=== PATIENT | female | born 1970 | race Caucasian/White ===

== ENCOUNTER → 2021-01-30 12:01 | Outpatient (BNVA) | payer OTHER, SELFPAY | PROVIDERS: Family Provider Family Medicine; PCP Family Medicine; Visit Provider Specialist | DX: H46.9 Unspecified optic neuritis (principal); G43.711 Chronic migraine without aura, intractable, with status migrainosus; M35.3 Polymyalgia rheumatica | CPT/HCPCS: 99204 ==

== ENCOUNTER 2021-02-09 14:59 | Outpatient (CLI) | payer OTHER, SELFPAY ==
[2021-02-09 15:59] LABS: C Reactive Protein 2.7 mg/L (0.0-4.9); Creatine Phosphokinase 86 U/L (26-192)
[2021-02-10 11:13] LABS: COMPLEMENT, TOTAL (CH50) >60 U/mL (31-60)
[2021-02-10 12:52] LABS: COMPLEMENT COMPONENT C3C 117 mg/dL (83-193); COMPLEMENT COMPONENT C4C 21 mg/dL (15-57)
[2021-02-14 15:58] LABS: THYROID PEROXIDASE ANTIBODIES 1 IU/mL (<9)
[2021-02-16 11:33] LABS: ANA PATTERN Nuclear, Homogeneous; ANA SCREEN, IFA POSITIVE (NEGATIVE)
[2021-02-16 14:23] LABS: CENTROMERE B ANTIBODY <1.0 NEG AI (<1.0 NEG); JO-1 ANTIBODY <1.0 NEG AI (<1.0 NEG); RNP ANTIBODY <1.0 NEG AI (<1.0 NEG); SCL-70 ANTIBODY <1.0 NEG AI (<1.0 NEG); SJOGREN'S ANTIBODY (SS-A) <1.0 NEG AI (<1.0 NEG); SM ANTIBODY <1.0 NEG AI (<1.0 NEG); SS-B <1.0 NEG AI (<1.0 NEG)
[2021-02-19 01:43] LABS: DNA AB (DS) CRITHIDIA,IFA NEGATIVE (NEGATIVE)
== END 2021-02-09 15:00 | disposition home or self-care (01) ==
LOC: LAB 15:00
PROVIDERS: PCP Family Medicine; Visit Provider Specialist
DX: M35.3 Polymyalgia rheumatica (principal); H46.9 Unspecified optic neuritis
CPT/HCPCS: 36415; 82550; 86140; 86160; 86162; 86235; 86255; 86376

== ENCOUNTER → 2021-02-27 11:23 | Outpatient (BNVA) | payer OTHER, SELFPAY | PROVIDERS: PCP Family Medicine; Visit Provider Specialist | DX: H46.9 Unspecified optic neuritis (principal); R13.10 Dysphagia, unspecified; M79.7 Fibromyalgia; E10.9 Type 1 diabetes mellitus without complications; Z79.84 Long term (current) use of oral hypoglycemic drugs; M35.3 Polymyalgia rheumatica; G43.711 Chronic migraine without aura, intractable, with status migrainosus | CPT/HCPCS: 20550; 20552; 99214; J1030; J3490 ==

== ENCOUNTER 2021-03-20 08:02 | Outpatient (CLI) | payer OTHER, SELFPAY ==
--- NOTE | 2021-03-20 08:30 | FL_ITS ---
WS: [id number] ESOPHAGRAM WITH FLUOROSCOPY HISTORY: R13.10 - Dysphagia, unspecified COMPARISON: None available. FLUOROSCOPY TIME: 1.0 minutes. Esophagus and swallowing function: Patient swallowed the barium mixture without difficulty. No strict ures or mucosal abnormalities are identified. Small osteophytes encroach upon the posterior cervical esophagus at the C6-7 level but do not disrupt swallowing mechanism. Patient swallowed the barium tab let without difficulty. Barium tablet became briefly lodged at the GE junction. No significant stenos is. Gastroesophageal reflux: None. Hiatal hernia: Small reducible hiatal hernia. FL/FL barium swallow 32744 IMPRESSION: 1. No esophageal high-grade strictures. No aspiration. 2. Barium tablet became briefly lodged at the GE junction. No high-grade stric ture at this time. 3. Small hiatal hernia.
== END 2021-03-20 08:03 | disposition home or self-care (01) ==
LOC: RADWPI 08:06
PROVIDERS: PCP Family Medicine; Visit Provider Specialist
DX: R13.10 Dysphagia, unspecified (principal); K44.9 Diaphragmatic hernia without obstruction or gangrene
CPT/HCPCS: 74220

== ENCOUNTER 2021-03-28 09:11 | Outpatient (CLI) | payer OTHER, SELFPAY ==
--- NOTE | 2021-03-28 09:30 | MR_ITS ---
WS: [id number] MRI HEAD WITHOUT AND WITH CONTRAST TECHNIQUE: Sagittal T1, T2 axial, T2 axial FLAIR, axial susceptibility weighted imaging, axial diffus ion weighted images, and coronal T2 images were obtained. Pre and post-T1 axial and post T1 coronal i mages. ADC and FSPGR images. Attention to the orbits with fat saturation technique. CLINICAL INFORMATION: H46.9 - Unspecified optic neuritis COMPARISON: MRI November 30, 2020 FINDINGS: No evidence of restricted diffusion to suggest acute ischemia. 2 or 3 tiny foci of T2 hyperintensity in the subcortical white matter. No suspicious infratentorial lesions. No pericallosal lesions. Oriana l corpus callosum. No hemosiderin on the susceptibly weighted images. Normal optic chiasm and pituitary infundibulum. Te mporal lobes and hippocampal formations are normal in appearance. Normal cavernous sinuses and Meckel 's cave. Prechiasmatic and intraorbital optic nerves are normal in appearance. No evidence of optic nerve gisele a. No abnormal optic nerve enhancement to indicate optic neuritis. Rectus muscles appear normal. No abnormal gadolinium enhancement. Normal dural venous sinuses. MR/MR head orbits wo/w* 83348/43 IMPRESSION: 1. No evidence of restricted diffusion to suggest acute ischemia. 2. No evidence of optic nerve edema or enhancement. Normal optic chiasm and op tic nerves. 3. Normal rectus muscles. 4. 2 or 3 tiny foci of T2 hyperintensity in the subcortical white matter nonsp ecific but of doubtful clinical significance. 5. No hemosiderin on susceptibly weighted images. 6. No other suspicious findings.
[2021-03-28] MEDS: gadobenate dimeglumine 20 mL vial IV (10:27)
== END 2021-03-28 09:12 | disposition home or self-care (01) ==
PROVIDERS: PCP Family Medicine; Visit Provider Specialist
DX: H46.9 Unspecified optic neuritis (principal)
CPT/HCPCS: 70543; 70553; A9577

== ENCOUNTER → 2021-04-03 09:50 | Outpatient (BNVA) | payer OTHER, SELFPAY | PROVIDERS: PCP Family Medicine; Visit Provider Specialist | DX: G43.711 Chronic migraine without aura, intractable, with status migrainosus (principal); M79.7 Fibromyalgia; Z71.89 Other specified counseling; H46.8 Other optic neuritis; E10.9 Type 1 diabetes mellitus without complications; Z79.4 Long term (current) use of insulin; M54.5 Low back pain | CPT/HCPCS: 99214 ==

== ENCOUNTER → 2021-04-24 09:41 | Outpatient (BNVA) | payer OTHER, SELFPAY | PROVIDERS: PCP Family Medicine; Visit Provider Internal Medicine Rheumatology | DX: M05.79 Rheumatoid arthritis with rheumatoid factor of multiple sites without organ or systems involvement (principal); H47.20 Unspecified optic atrophy; Z79.899 Other long term (current) drug therapy; E10.9 Type 1 diabetes mellitus without complications; Z11.59 Encounter for screening for other viral diseases; Z71.89 Other specified counseling | CPT/HCPCS: 99205 ==

== ENCOUNTER 2021-04-28 12:00 | Outpatient (CLI) | payer OTHER, SELFPAY ==
[2021-04-28 13:23] LABS: Basophils # 0.1 10^3/uL (0.0-0.1); Basophils % 0.8 %; Eosinophils % 0.4 %; Hematocrit 42.4 % (37.0-47.0); Hemoglobin 14.7 g/dL (11.5-15.3); Lymphocytes # 1.6 10^3/uL (0.8-4.8); Lymphocytes % 16.9 %; Mean Corpuscular HGB Conc 34.7 g/dL (30.0-36.0); Mean Corpuscular Volume 92.2 fL (81-99); Mean Platelet Volume 11.3 fL (7.4-10.4); Monocytes # 0.5 10^3/uL (0.2-0.9); Monocytes % 4.6 %; Neutrophils # 7.45 10^3/uL (1.8-7.7); Nucleated Red Blood Cells % 0 %; Platelet Count 270 10^3/cmm (130-400); Red Cell Distribution Width 12.3 % (12.1-15.1); White Blood Count 9.7 10^3/uL (4.0-10.0)
[2021-04-28 13:26] LABS: Erythrocyte Sedimentation Rate 21 mm/hr (0-15)
[2021-04-28 13:40] LABS: Hepatitis B Core AB, Total Non-Reactive (Nonreactive); Hepatitis B Surface Antigen Non-Reactive (Nonreactive); Hepatitis C Virus Antibody Non-Reactive (Nonreactive)
[2021-04-28 14:55] LABS: Alanine Aminotransferase 16 U/L (0-33); Albumin Level 4.4 g/dL (3.5-5.2); Alkaline Phosphatase 95 IU/L (35-105); Aspartate Amino Transferase 17 U/L (0-32); C Reactive Protein 2.8 mg/L (0.0-4.9); Creatine Phosphokinase 69 U/L (26-192); Globulin 2.8 g/dL (1.3-4.6); Total Bilirubin 0.4 mg/dL (0.15-1.2); Total Protein 7.2 g/dL (6.6-8.7)
[2021-04-28 15:10] LABS: 25 Hydroxy Vitamin D 32 ng/mL (30-100)
[2021-04-30 16:54] LABS: HLA-B27 NEGATIVE (NEGATIVE)
[2021-05-01 11:07] LABS: Aldolase 2.5 U/L (< OR = 8.1)
[2021-05-01 11:57] LABS: Quantiferon Mitogen >10.00 IU/mL; Quantiferon Nil 0.02 IU/mL; Quantiferon TB Gold NEGATIVE (NEGATIVE)
== END 2021-04-28 12:01 | disposition home or self-care (01) ==
PROVIDERS: PCP Family Medicine; Visit Provider Internal Medicine Rheumatology
DX: M19.90 Unspecified osteoarthritis, unspecified site (principal); M45.9 Ankylosing spondylitis of unspecified sites in spine; Z11.59 Encounter for screening for other viral diseases; Z79.899 Other long term (current) drug therapy
CPT/HCPCS: 80076; 82085; 82306; 82550; 82565; 85025; 85651; 86140; 86480; 86704; 86803; 86812; 87340

== ENCOUNTER → 2021-05-24 08:57 | Outpatient (BNVA) | payer OTHER, SELFPAY | PROVIDERS: PCP Family Medicine; Referring Provider Internal Medicine Rheumatology; Visit Provider Specialist | DX: R29.898 Other symptoms and signs involving the musculoskeletal system (principal); E10.9 Type 1 diabetes mellitus without complications; Z79.84 Long term (current) use of oral hypoglycemic drugs | CPT/HCPCS: 95909 ==

== ENCOUNTER → 2021-07-25 08:32 | Outpatient (BNVA) | payer OTHER, SELFPAY | PROVIDERS: PCP Family Medicine; Referring Provider Internal Medicine Rheumatology; Visit Provider Specialist | DX: G43.711 Chronic migraine without aura, intractable, with status migrainosus (principal); M79.7 Fibromyalgia; H46.9 Unspecified optic neuritis; R20.0 Anesthesia of skin; R20.2 Paresthesia of skin; E10.649 Type 1 diabetes mellitus with hypoglycemia without coma; Z96.41 Presence of insulin pump (external) (internal); Z79.4 Long term (current) use of insulin; Z79.84 Long term (current) use of oral hypoglycemic drugs; M35.3 Polymyalgia rheumatica; M05.79 Rheumatoid arthritis with rheumatoid factor of multiple sites without organ or systems involvement | CPT/HCPCS: 64615; 95861; 99213; J0585 ==

== ENCOUNTER 2021-12-06 12:28 | Outpatient (CLI) | payer OTHER, SELFPAY ==
[2021-12-06 13:26] LABS: Basophils # 0.1 10^3/uL (0.0-0.1); Basophils % 0.9 %; Eosinophils # 0.1 10^3/uL (0.0-0.8); Eosinophils % 0.5 %; Hematocrit 39.8 % (37.0-47.0); Hemoglobin 13.3 g/dL (11.5-15.3); Lymphocytes # 2.1 10^3/uL (0.8-4.8); Lymphocytes % 21.3 %; Mean Corpuscular HGB Conc 33.4 g/dL (30.0-36.0); Mean Corpuscular Hemoglobin 31.7 pg (28.0-34.0); Monocytes # 0.7 10^3/uL (0.2-0.9); Monocytes % 6.8 %; Neutrophils # 6.93 10^3/uL (1.8-7.7); Neutrophils % 70.2 %; Nucleated Red Blood Cells % 0 %; Platelet Count 293 10^3/cmm (130-400); Red Blood Count 4.19 10^6/uL (4.1-5.3); Red Cell Distribution Width 12.8 % (12.1-15.1); White Blood Count 9.9 10^3/uL (4.0-10.0)
--- NOTE | 2021-12-06 13:53 | XR_ITS ---
WS: [id number] Right hand, 3 views, 12/06/2021 Clinical Data: M05.79 - Rheumatoid arthritis with rheumatoid factor of m... Comparison: None. Findings: No fractures or dislocations are seen. The soft tissues are unremarkable. The joint space s are normal No periarticular demineralization or calcifications are seen. XR/XR hand RT min 3V* 63856 Impression: Negative right hand.
--- NOTE | 2021-12-06 13:53 | XR_ITS ---
WS: [email or web address] Right foot, 3 views, 12/06/2021 Clinical Data: M05.79 - Rheumatoid arthritis with rheumatoid factor of m... Comparison: None. Findings: No fractures or dislocations are seen. No bone destruction or erosion is noted. The joint spaces and soft tissues are normal. No periarticular demineralization or calcifications are seen. XR/XR foot RT min 3V* [id number] Impression: Negative right foot.
--- NOTE | 2021-12-06 13:53 | XR_ITS ---
WS: [email or web address] Cervical spine, 3 views, 12/06/2021 Clinical Data: M05.79 - Rheumatoid arthritis with rheumatoid factor of m... Comparison: None. Findings: No compression fractures are seen. There is degenerative disc narrowing at C5-C6 with minim al anterior osteophytes. There is no prevertebral soft tissue swelling. The odontoid is unremarkable. The soft tissues of the neck and the lung apices are normal. XR/XR cervical spine 3V* 70782 Impression: 1. Degenerative disc narrowing at C5-C6 with anterior osteophytes. 2. No evidence of abnormal odontoid or atlantoaxial subluxation.
--- NOTE | 2021-12-06 13:53 | XR_ITS ---
WS: [email or web address] Left hand, 3 views, 12/06/2021 Clinical Data: M05.79 - Rheumatoid arthritis with rheumatoid factor of m... Comparison: None. Findings: No fractures or dislocations are seen. The soft tissues are unremarkable. There is osteoarthritis of the left second finger DIP joint. No periarticular demineralization or calcifications are seen. XR/XR hand LT min 3V* 26784 Impression: 1. 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
--- NOTE | 2021-12-06 13:53 | XR_ITS ---
WS: [email or web address] Pelvis, AP view, 12/06/2021 Clinical Data: M05.79 - Rheumatoid arthritis with rheumatoid factor of m... Comparison: None. Findings: No fractures or dislocations are seen. The SI joints and pubic symphysis are intact. The soft tissues are not remarkable. The hip show no narrowing, erosion, sclerosis or femoral head fragmentation. There are phleboliths on the left side of the true pelvis. XR/XR pelvis 1-2V* 12965 Impression: Negative pelvis.
--- NOTE | 2021-12-06 13:53 | XR_ITS ---
WS: [email or web address] Left foot, 3 views, 12/06/2021 Clinical Data: M05.79 - Rheumatoid arthritis with rheumatoid factor of m... Comparison: None. Findings: No fractures or dislocations are seen. No bone destruction or erosion is noted. There is a small buni on at the head of the left first metatarsal.No periarticular demineralization or calcifications are s een. XR/XR foot LT min 3V* 64043 Impression: Small bunion at the head of the left first metatarsal.
--- NOTE | 2021-12-06 13:53 | XR_ITS ---
WS: [email or web address] Chest 2 views, 12/06/2021 Clinical Data: M05.79 - Rheumatoid arthritis with rheumatoid factor of m... Comparison: Portable chest, 01/05/2018. Findings: No nodules, masses or effusions are seen. The heart is normal. The pulmonary vascularity is not increased. No pneumonia or pneumothorax is seen. There is a calcified granuloma in the right upp er lobe with multiple smaller granulomas in the right hilum and right lower lobe. XR/XR chest 2V* [id number] Impression: Old granulomatous disease.
[2021-12-06 14:12] LABS: Alanine Aminotransferase 43 U/L (0-33); Albumin Level 4.4 g/dL (3.5-5.2); Alkaline Phosphatase 157 IU/L (35-105); Aspartate Amino Transferase 27 U/L (0-32); Globulin 2.9 g/dL (1.3-4.6); Glomerular Filtration Rate 87.5 mL/min (90-130); Total Bilirubin 0.4 mg/dL (0.15-1.2); Total Protein 7.3 g/dL (6.6-8.7)
== END 2021-12-06 12:29 | disposition home or self-care (01) ==
LOC: LAB 12:32
PROVIDERS: PCP Family Medicine; Visit Provider Internal Medicine Rheumatology
DX: M05.79 Rheumatoid arthritis with rheumatoid factor of multiple sites without organ or systems involvement (principal); M06.9 Rheumatoid arthritis, unspecified; Z79.899 Other long term (current) drug therapy; M21.612 Bunion of left foot
CPT/HCPCS: 71046; 72040; 72170; 73130; 73630; 80076; 82565; 85025; 86140

== ENCOUNTER → 2022-06-07 11:38 | Outpatient (BNVA) | payer OTHER, SELFPAY | PROVIDERS: PCP Family Medicine; Visit Provider Family Medicine | DX: R10.9 Unspecified abdominal pain (principal); E05.90 Thyrotoxicosis, unspecified without thyrotoxic crisis or storm; E10.9 Type 1 diabetes mellitus without complications | CPT/HCPCS: 80053; 82607; 83690; 84439; 84443; 84481; 85025 ==

== ENCOUNTER → 2022-11-13 10:36 | Outpatient (BNVA) | payer OTHER, SELFPAY | PROVIDERS: PCP Family Medicine; Visit Provider Internal Medicine Rheumatology | DX: Z79.899 Other long term (current) drug therapy (principal); M05.79 Rheumatoid arthritis with rheumatoid factor of multiple sites without organ or systems involvement | CPT/HCPCS: 36415; 80076; 82565; 85025; 86140 ==

== ENCOUNTER → 2022-12-13 15:20 | Outpatient (BNVA) | payer OTHER, SELFPAY | PROVIDERS: PCP Family Medicine; Visit Provider Family Medicine | DX: L98.9 Disorder of the skin and subcutaneous tissue, unspecified (principal) | CPT/HCPCS: 88304 ==

== ENCOUNTER 2022-12-24 11:42 | Observation (INO) | payer OTHER, SELFPAY ==
[2022-12-24] VITALS (15 sets, daily range): BP systolic 124–166; BP diastolic 10–103; PULSE 83–107; RESP 13–24; TEMP 36.8–37; O2SAT 90–98; BMI 27.4
--- NOTE | 2022-12-24 11:53 | XRR_ITS ---
PROCEDURE INFORMATION: Exam: XR Chest Exam date and time: 12/24/2022 12:06 PM Age: 52 years old Clinical indication: Pain; Angina pectoris; Additional info: Chest pain TECHNIQUE: Imaging protocol: Radiologic exam of the chest. Views: 1 view. COMPARISON: CR XR chest 2V* [id number] 12/06/2021 2:21 PM FINDINGS: Lungs: Calcified granuloma in the right upper lobe is stable since 01/05/2018. There is no consolidation. Pleural spaces: There is no pleural effusion or pneumothorax. Heart/Mediastinum: Cardiomediastinal contours are unremarkable. Bones/joints: Bones are unremarkable. XR/XR chest 1V portable [id number] IMPRESSION: No acute findings.
--- NOTE | 2022-12-24 12:03 | ECG_ITS ---
[facility] Test Date: 2022-12-24 Pat Name: Arline Fisher Department: Room: Gender: Female Project Manager Interior Design: : 1970 Requested By: Fern Rivera Order Number: [id number] Phyllis MD: Manoj Moulton M.D. Measurements Intervals [place] Rate: 86 P: 38 [place]: 150 QRS: -23 QRSD: 94 T: 23 QT: 342 QTc: 411 Interpretive Statements SINUS RHYTHM SEPTAL MYOCARDIAL INFARCTION , PROBABLY OLD [40+ ms Q WAVE IN V1/V2] Compared to ECG 01/05/2018 21:42:46 Myocardial infarct finding now present Electronically Signed On 12-24-2022 15:58:14 CDT by Manoj Moulton M.D. [email or web address] [email or web address].[employer]/store/NU/[id number] f
--- NOTE | 2022-12-24 12:06 | ED_ITS ---
HPI - Chest Pain General: Chief Complaint: ER Hold Stated Complaint: chest pain this morning Time Seen by Provider: 12/24/22 12:06 History of Present Illness: Ms Fisher is a 52-year-old lady with complex past medical history including type 1 diabetes presenting to the emergency d [facility] for chest pain. She reports onset of symptoms woke her up from sleep at approximately 4 AM. She managed to fall back asleep however it persisted when she woke up. She endorses heaviness over her chest with radiation to left jaw. Associated shortness of breath. No other typical cardiac features. She reports 1 prior episode approximately 6 months ago however does not have frequent history of similar. She still has pain though it has improved slightly. She has had a mild respiratory infection over the past week however felt that this was improving. No other specific changes in health, exacerbating, or alleviating factors identified. Onset (ago): hour(s) Timing of current episode: constant Prior episodes: Yes (x1) Onset: during rest and awoke with symptoms Pain location: substernal Pain radiation: neck and jaw/teeth Severity: moderate Quality: heaviness Relieving factors: nothing Exacerbating factors: nothing Associated symptoms: Reports dyspnea; Deny diaphoresis or nausea Review of Systems General: Reports: 10 or more systems reviewed and unremarkable except in HPI and below Const: Denies: diaphoresis Resp: Reports: dyspnea GI: Denies: nausea PFSH ED 2 PFSH: Medical History Chronic migraine without aura, intractable, with status migrainosus Diabetes 1.5, managed as type 1 High risk medication use Immunization counseling Optic nerve atrophy, right Plaque psoriasis Seropositive rheumatoid arthritis of multiple sites Surgical History History of delivery History of esophageal surgery cyst History of hysterectomy with bilateral oophorectomy Family History Other CAD (coronary artery disease) Diabetes FH: migraines Hypertension Multiple sclerosis Multiple system atrophy Denies family history of Rheumatoid arthritis Lupus Chronic kidney disease (CKD) Lung disease Cancer Stroke Social History Smoking and tobacco status: never smoked Alcohol intake: current Alcohol intake frequency: few times a month Physical Exam Const: COMMON NORMALS: alert GENERAL APPEARANCE: cooperative and well developed HENMT: COMMON NORMALS: normocephalic and atraumatic HEAD & SCALP: normocephalic and atraumatic Eye: COMMON NORMALS: conjunctivae normal CONJUNCTIVA: Yes conjunctivae normal SCLERA: sclerae normal Neck/C-Spine: COMMON NORMALS: supple GENERAL: Yes trachea midline Resp: COMMON NORMALS: clear to auscultation bilaterally EFFORT & INSPECTION: Yes able to speak in complete sentences AUSCULTATION: clear to auscultation bilaterally Cardio: COMMON NORMALS: regular rate and regular rhythm RATE: regular rate RHYTHM: regular rhythm GI: COMMON NORMALS: Soft to palpation PALPATION: Yes Soft to palpation and No Tenderness to palpation present (GI) Extremity: GENERAL: Yes normal exam except as noted and No edema Neuro: COMMON NORMALS: moves all extremities SENSORIUM/ORIENTATION: Yes alert and No Orientation impaired Skin: NARRATIVE SKIN EXAM: small right ankle skin ulcerations x2. no cellulitis. reports being worked up by PCP. Course Vital Signs: Vital signs: Vital Signs Temperature 97.9 F 12/25/22 07:06 Pulse Rate 105 H 12/25/22 15:23 Respiratory Rate 18 12/25/22 15:23 Blood Pressure 134/84 12/25/22 15:23 Pulse Oximetry 95 12/25/22 15:23 Oxygen Delivery Me thod 12/25/22 11:09 [facility] - Chest Pain Medical Decision Making 52-year-old presenting to the emergency department for chest pain. Exam as above. Patient is nontoxic. EKG notable for sinus rhythm, left axis deviation, normal intervals, nonspecific ST segment abnormalities, no STEMI. Labs with no leukocytosis, normal hemoglobin and platelet count. No metabolic abnormalities. Initial troponin negative with no increase on repeat. Chest x-ray demonstrates no lobar consolidation or pneumothorax. During ED course patient treated with IV fluids and aspirin. Patient is not low risk by heart score, she warrants inpatient testing for possible cardiac cause of chest pain. The results of ED evaluation were discussed with the patient including plan for admission due to requirement for level of care not available if discharged to prevent significant worsening/deterioration. Patient agreeable with plan. Discussed with hospitalist service who was agreeable to admit patient. Medical Records I reviewed the patient's medical records. Lab Data I reviewed the patient's lab results. 12/24/22 12:08 12/24/22 12:08 Radiology Impressions Chest X-Ray 12/24/22 11:53 IMPRESSION: No acute findings. Laboratory Results WBC 6.3 10^3/uL (4.0-10.0) 12/24/22 12:08 RBC 3.96 10^6/uL (4.1-5.3) L 12/24/22 12:08 Hgb 13.0 g/dL (11.5-15.3) 12/24/22 12:08 Hct 39.7 % (37.0-47.0) 12/24/22 12:08 MCV 100.3 fl (81-99) H 12/24/22 12:08 MCH 32.8 pg (28.0-34.0) 12/24/22 12:08 MCHC 32.7 g/dL (30.0-36.0) 12/24/22 12:08 RDW 11.3 % (12.1-15.1) L 12/24/22 12:08 Plt Count 269 10^3/cmm (130-400) 12/24/22 12:08 MPV 10.5 fL (7.4-10.4) H 12/24/22 12:08 Neut % (Auto) 64.3 % 12/24/22 12:08 Lymph % (Auto) 23.2 % 12/24/22 12:08 [place] % (Auto) 8.0 % 12/24/22 12:08 Eos % (Auto) 2.4 % 12/24/22 12:08 Baso % (Auto) 1.8 % 12/24/22 12:08 Neut # (Auto) 4.03 10^3/uL (1.8-7.7) 12/24/22 12:08 Lymph # (Auto) 1.5 10^3/uL (0.8-4.8) 12/24/22 12:08 [place] # (Auto) 0.5 10^3/uL (0.2-0.9) 12/24/22 12:08 Eos # (Auto) 0.2 10^3/uL (0.0-0.8) 12/24/22 12:08 Baso # (Auto) 0.1 10^3/uL (0.0-0.1) 12/24/22 12:08 Nucleated RBC % (auto) 0 % 12/24/22 12:08 Nucleated RBCs # 0.0 /100WBC 12/24/22 12:08 PT 13.20 SECONDS (12.1-14.9) 12/24/22 12:08 INR 0.97 (0.8-1.2) 12/24/22 12:08 APTT 33.2 SECONDS (23.9-36.7) 12/24/22 12:08 Sodium 142 mmol/L (136-145) 12/24/22 12:08 Potassium 4.0 mmol/L (3.5-5.1) 12/24/22 12:08 Chloride 107 mmol/L (98-107) 12/24/22 12:08 Carbon Dioxide 27 mmol/L (22-29) 12/24/22 12:08 Anion Gap 12.0 (5-19) 12/24/22 12:08 BUN 8 mg/dL (6-20) 12/24/22 12:08 Creatinine 0.6 mg/dL (0.5-0.9) 12/24/22 12:08 GFR Calculation 104.2 mL/min (90-130) 12/24/22 12:08 Glucose 81 mg/dL (65-115) 12/24/22 12:08 Calculated Osmolality 291 mOsm/kg (285-295) 12/24/22 12:08 Calcium 9.3 mg/dL (8.5-10.5) 12/24/22 12:08 Total Bilirubin 0.4 mg/dL (0.15-1.2) 12/24/22 12:08 AST 22 U/L (0-32) 12/24/22 12:08 ALT 17 U/L (0-33) 12/24/22 12:08 Alkaline Phosphatase 71 U/L (35-105) 12/24/22 12:08 Troponin T Baseline 6 ng/L (0-10) 12/24/22 12:08 Troponin T 120 Minute 6.00 ng/L (0-10) 12/24/22 14:15 Delta Troponin T 0 ABS# (0-10) 12/24/22 14:15 Total Protein 6.5 g/dL (6.6-8.7) L 12/24/22 12:08 Albumin 4.1 g/dL (3.5-5.2) 12/24/22 12:08 Globulin 2.4 g/dL (1.3-4.6) 12/24/22 12:08 Lipase 22 U/L (13-60) 12/24/22 12:08 Discharge Plan Discharge Patient Disposition: Placed in Observation Admit Provider: Gwendolyn Chavez Clinical Impression: Chest pain Discharge Diet: Usual diet Discharge Activity: Resume usual activity Coding Level of Care Code ED Display Carver for Vee Pham
[2022-12-24 12:18] LABS: Basophils # 0.1 10^3/uL (0.0-0.1); Basophils % 1.8 %; Eosinophils # 0.2 10^3/uL (0.0-0.8); Eosinophils % 2.4 %; Hematocrit 39.7 % (37.0-47.0); Lymphocytes # 1.5 10^3/uL (0.8-4.8); Lymphocytes % 23.2 %; Mean Corpuscular HGB Conc 32.7 g/dL (30.0-36.0); Mean Corpuscular Hemoglobin 32.8 pg (28.0-34.0); Mean Corpuscular Volume 100.3 fl (81-99); Mean Platelet Volume 10.5 fL (7.4-10.4); Monocytes # 0.5 10^3/uL (0.2-0.9); Neutrophils # 4.03 10^3/uL (1.8-7.7); Neutrophils % 64.3 %; Nucleated Red Blood Cells % 0 %; Platelet Count 269 10^3/cmm (130-400); Red Blood Count 3.96 10^6/uL (4.1-5.3); Red Cell Distribution Width 11.3 % (12.1-15.1); White Blood Count 6.3 10^3/uL (4.0-10.0)
[2022-12-24] MEDS: sodium chloride 0.9% 500 ML 999 ML IV (12:23)
[2022-12-24] MEDS: aspirin 81 mg Chew Tablet 324 MG PO (12:23)
[2022-12-24 12:37] LABS: Troponin(5th) Baseline 6 ng/L (0-10)
[2022-12-24 12:38] LABS: Alanine Aminotransferase 17 U/L (0-33); Albumin Level 4.1 g/dL (3.5-5.2); Alkaline Phosphatase 71 U/L (35-105); Aspartate Amino Transferase 22 U/L (0-32); Blood Urea Nitrogen 8 mg/dL (6-20); Calcium 9.3 mg/dL (8.5-10.5); Carbon Dioxide 27 mmol/L (22-29); Chloride 107 mmol/L (98-107); Globulin 2.4 g/dL (1.3-4.6); Glomerular Filtration Rate 104.2 mL/min (90-130); Glucose 81 mg/dL (65-115); Osmolality Calculated 291 mOsm/kg (285-295); Sodium 142 mmol/L (136-145); Total Bilirubin 0.4 mg/dL (0.15-1.2); Total Protein 6.5 g/dL (6.6-8.7)
[2022-12-24 12:44] LABS: INR 0.97 (0.8-1.2); Partial Thromboplastin Time 33.2 SECONDS (23.9-36.7)
[2022-12-24 12:58] LABS: Lipase 22 U/L (13-60)
--- NOTE | 2022-12-24 14:00 | ECG_ITS ---
[facility] Test Date: 2022-12-24 Pat Name: Arline Fisher Department: Room: Gender: Female Direct Care Specialist: : 1970 Requested By: Fern Rivera Order Number: [id number] Phyllis MD: Manoj Moulton M.D. Measurements Intervals [place] Rate: 89 P: 40 [place]: 148 QRS: -14 QRSD: 85 T: 18 QT: 335 QTc: 408 Interpretive Statements SINUS RHYTHM Compared to ECG 01/05/2018 21:42:46 No significant changes Electronically Signed On 12-24-2022 16:03:52 CDT by Manoj Moulton M.D. [email or web address].[employer]/store/OM/[id number]
[2022-12-24 15:24] LABS: Troponin 5 2HR Delta 0 ABS# (0-10)
--- NOTE | 2022-12-24 17:53 | ECG_ITS ---
[facility] Test Date: 2022-12-24 Pat Name: Arline Fisher Department: Room: 103 Gender: Female Addictions Therapist: : 1970 Requested By: Fern Rivera Order Number: [id number] Phyllis MD: Kathryn Underwood M.D. Measurements Intervals [place] Rate: 84 P: 40 [place]: 146 QRS: -20 QRSD: 97 T: 23 QT: 356 QTc: 422 Interpretive Statements SINUS RHYTHM SEPTAL MYOCARDIAL INFARCTION , PROBABLY OLD [40+ ms Q WAVE IN V1/V2] Compared to ECG 12/24/2022 14:00:40 Myocardial infarct finding now present Electronically Signed On 12-25-2022 23:14:07 CDT by Kathryn Underwood M.D. [email or web address].[employer]/store/OM/[id number]
--- NOTE | 2022-12-24 18:59 | ECG_ITS ---
[facility] Test Date: 2022-12-25 Pat Name: Arline Fisher Department: Room: 103 Gender: Female Senior Quality Control Inspector: : 1970 Requested By: Gwendolyn Chavez Order Number: [id number] Phyllis MD: Manoj Moulton M.D. Interpretive Statements NAME OF STUDY: LEXISCAN SESTAMIBI STRESS TEST INDICATION: [Angina] Procedure: At the baseline, the blood pressure was 128/94 mmHg with a heart rate of 88 bpm. The electrocardiogram showed normal sinus rhythm, normal axis with normal ST and T's. The Lexiscan was infused over a period of 20 seconds. A total of 0.4 mg of Lexiscan was infused. The stress phase was continued for a total of 5 minutes. Heart rate was at the end of stress phase was 98 bpm and a blood pressure of 141/96 mmHg. The EKG at the peak infusion revealed normal sinus rhythm with no significant ST-T wave changes. Sestamibi was injected 20 seconds after the Lexiscan infusion. Blood pressure at the end of recovery phase was 130/95 mmHg with a heart rate of 90 bpm. Conclusion: 1. Normal EKG response to Lexiscan infusion 2. No Lexiscan induced chest pain or cardiac arrhythmia. 3. Normal blood pressure and heart rate response. 4. Sestamibi/sestamibi perfusion scan pending; see separate report. Electronically Signed On 01-10-2023 11:56:57 CDT by Manoj Moulton M.D. [email or web address]/store/OM/[id number]
[2022-12-24 19:01] LABS: Troponin 5 6HR 8.68 ng/L (0-10)
--- NOTE | 2022-12-24 19:05 | PM.HP ---
Providers/Chief Complaint Admitting Physician: Gwendolyn Chavez MD Primary Care Provider: Sven Mai MD Chief Complaint: chest pain this morning History of Present Illness Arline Fisher is a 52 year old female with a past medical history of type 1 diabetes mellitus, states under good control, essential hypertension, not currently on any medication for the same, polymyalgia rheumatica and optic neuritis on immunosuppressants presenting with complaints of left-sided chest pain radiating into her jaw. Patient states it is 8 out of 10 at its maximum intensity. The pain woke her up from sleep this morning. It has not recurred since then. She did have a similar episode of left-sided chest pain radiating into the left arm approximately 6 months ago. She tells me there was a plan to pursue a stress test as an outpatient, however this never got done. She denies any dyspnea palpitations or syncope, however does report she was nauseous this morning after the episode. EKG today does not show any acute ST-T wave changes. Troponin series is currently without any significant delta. Review of Systems General: Reports: 10 or more systems reviewed and unremarkable except in HPI and below Const: Denies: fever(s), chills or body aches Eyes: Denies: change in vision, blurry vision or photophobia ENMT: Reports: hoarseness; Denies: throat pain, enlarged tonsils, odynophagia or nasal congestion Card: Denies: chest pain, palpitations, irregular heart rhythm, edema, swelling of feet/ankles, lightheadedness, pre-syncope, dyspnea on exertion or orthopnea Resp: Denies: dyspnea, productive cough, non-productive cough, wheezing, stridor, pain on inspiration, change in phlegm color, hemoptysis or chest congestion GI: Denies: abdominal pain, nausea, vomiting, hematemesis, coffee ground emesis, dysphagia, heartburn, diarrhea, constipation, GI cramping, change in stool character, hematochezia or melena : Denies: flank pain, difficulty voiding, dysuria, urinary frequency, urinary urgency, urinary hesitancy or hematuria Musc: Denies: neck pain, back pain, extremity pain, joint swelling, joint warmth or deformity Neuro: Denies: headache(s), numbness in extremities, weakness in extremities, sensory changes, difficulty walking, frequent falls, dizziness, vertigo, behavioral changes, Slurred speech present or seizure-like activity Psych: Denies: anxiety, depression, suicidal ideation or homicidal ideation Endo: Denies: polyuria, polydipsia, tired all the time, cold intolerance or hot flashes Bhargav/Lymph: Denies: easy bruising or easy bleeding Medications/Allergies Home Medications Medication Instructions Recorded Confirmed Last Taken Type sumatriptan succinate 50 mg tablet 50 mg PO Q2H PRN Migraine Headache 01/30/21 12/24/22 Unknown History (Imitrex) hydrocodone 10 mg-acetaminophen 1 tab PO BID PRN Pain 02/06/22 12/24/22 Unknown History 325 mg tablet gabapentin 300 mg capsule 300 mg PO BID 06/07/22 12/24/22 12/24/22 History metformin 1,000 mg tablet 500 mg PO BID 06/07/22 12/24/22 12/24/22 History pravastatin 10 mg tablet 10 mg PO DAILY 06/07/22 12/24/22 12/23/22 History triamcinolone acetonide 0.5 % 1 applic topical BID #15 grams 11/12/22 12/24/22 Unknown Rx topical cream adalimumab 40 mg/0.8 mL 40 mg (0.8 mL) SUBCUT Q14D #2 ea 11/13/22 12/24/22 Unknown Rx subcutaneous pen kit (Humira Pen) prednisone 5 mg tablet 5 mg PO DAILY #90 tabs 11/13/22 12/24/22 12/24/22 Rx sulfasalazine 500 mg tablet 1 g PO BID #120 tabs 11/13/22 12/24/22 12/24/22 Rx folic acid 1 mg tablet 3 mg PO DAILY #90 tabs 12/19/22 12/24/22 12/24/22 Rx alprazolam 0.25 mg tablet (Xanax) 0.25 mg PO DAILY PRN Anxiety 12/24/22 12/24/22 Unknown History insulin aspart U-100 100 unit/mL See Rx Instructions .Route .COMPLEX 12/24/22 12/24/22 Unknown History subcutaneous solution (Novolog U-100 Insulin aspart) leflunomide 20 mg tablet 20 mg PO DAILY 12/24/22 12/24/22 12/24/22 History pantoprazole 40 mg tablet,delayed 40 mg PO DAILY 12/24/22 12/24/22 12/24/22 History release Allergies Allergy/AdvReac Type Severity Reaction Status Date / Time bupropion [From Wellbutrin] Allergy Intermediate hallucinati Verified 11/22/22 07:55 on galcanezumab-gnlm Allergy Mild Rash on leg Verified 11/22/22 07:55 [From Emgality Pen] PFSH Acute PFSH: Medical History Chronic migraine without aura, intractable, with status migrainosus Diabetes 1.5, managed as type 1 High risk medication use Immunization counseling Optic nerve atrophy, right Plaque psoriasis Seropositive rheumatoid arthritis of multiple sites Surgical History History of delivery History of esophageal surgery cyst History of hysterectomy with bilateral oophorectomy Family History Other CAD (coronary artery disease) Diabetes FH: migraines Hypertension Multiple sclerosis Multiple system atrophy Denies family history of Rheumatoid arthritis Lupus Chronic kidney disease (CKD) Lung disease Cancer Stroke Social History Smoking and tobacco status: never smoked Alcohol intake: current Alcohol intake frequency: few times a month Vitals/I&O/Wt Last Vital Signs Temp 98.6 F 12/24/22 11:50 Pulse 94 12/24/22 17:25 Resp 20 H 12/24/22 17:25 BP 162/103 12/24/22 17:25 Pulse Ox 95 12/24/22 17:25 O2 Del Method 12/24/22 16:15 12/24/22 12/24/22 12/24/22 06:59 14:59 22:59 Intake Total 500 / 500 Balance 500 / 500 Weight last 48 hrs Weight 72.575 kg Weight 72.575 kg Physical Exam Narrative: General: No acute distress, AO x3 HEENT: PERRLA, pupils bilaterally equal and reactive, pallors not present Chest: Normal vesicular breath sounds, no added sounds, equal good air entry bilaterally CVS: S1-S2 regular, no murmurs, no tachycardia, no gallops, no rubs Abdomen: Soft, nontender, no organomegaly, bowel sounds present Neuro: No focal deficits, no facial deformity, AO x3, power 5/5 in all limbs Data 12/24/22 12:08 12/24/22 12:08 A&P Assessment and plan (1) Chest pain: Patient with multiple risk factors for cardiovascular disease including type 1 diabetes, hypertension, chronic inflammatory disorders presenting today with complaints of chest pain with a history of similar episode 6 months ago. Currently no acute ST-T wave changes on EKG, troponin series without significant delta at 2 hours and 6 hours. Given patient has multiple comorbidities, concern for chest pain being caused by unstable angina. We will go ahead and proceed with a stress test tomorrow morning. N.p.o. postmidnight. Aspirin 81 mg p.o. 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 Continue home medications including hydrocodone Insulin sliding scale for diabetes control. Attestations Medical Necessity Statement*: Anticipate less than 2 midnight stay for evaluation of chest pain, stress test tomorrow morning Coding Level of Care Code Acute Code for Vee Pham Diagnoses Chest pain R07.9
[2022-12-24 19:06] LABS: Troponin 5 6HR Delta 2.68 ng/L (0-12)
[2022-12-24] MEDS: HYDROcodone-acetaminophen 10-325 mg Tablet 1 TAB PO (20:45)
[2022-12-25] VITALS (7 sets, daily range): BP systolic 132–146; BP diastolic 80–96; PULSE 78–105; RESP 14–18; TEMP 36.6; O2SAT 95–100
--- NOTE | 2022-12-25 07:14 | PC.NURSE ---
Patient left floor for stress test
[2022-12-25] MEDS: regadenoson 0.4 Mg/5 ml Syringe IVP (07:49)
--- NOTE | 2022-12-25 08:00 | NMCV_ITS ---
NM luis e perf SPECT r/s* [id number] Arline Fisher Age: 52 Gender: F : 1970 Exam Date: 12/25/2022 08:00 Ordering Phys: Gwendolyn Chavez MD Technologist: SHENG Leiva Exam Location: [facility] Indications: CHEST PAIN STRESS TEST Please see separate stress test report in [facility] for full findings IMAGE PROTOCOL Rest/Stress 1 Lexiscan Day Radiopharmaceutical Dose (mCi) Administration Site Administered by Rest: Tc-99m 10.9 IV SHENG Steen Sestamibi Stress:Tc-99m 32.5 IV SHENG Steen Sestamibi Rest: 25-Dec-2022 60 Discovery 630 Stress: 25-Dec-2022 30 Discovery 630 0.4mg Lexiscan. Images obtained in supine and prone position. SPECT RESULTS Technical Quality: Excellent Raw Data Analysis: Normal Image Corrections: No attenuation or motion correction applied Summed Stress Score: 0 Summed Rest Score: 0 Summed Difference Score: 0 PERFUSION FINDINGS SPECT images demonstrate homogeneous tracer distribution throughout the myocardium. FUNCTIONAL RESULTS (calculated via Gated SPECT) Stress Image LV EF (%): 75 Stress EDV (mL):75 TID: 0.94 Stress ESV (mL):19 FUNCTIONAL FINDINGS: There is normal left ventricular systolic function. IMPRESSIONS 1. Normal myocardial perfusion imaging with no evidence of ischemia 2. LV systolic function is normal Manoj Moulton MD (Electronically Signed) Final Date: 25 December 2022 09:36 S
[2022-12-25] MEDS: predniSONE 5 mg Tablet PO (09:12)
[2022-12-25] MEDS: gabapentin 300 mg Capsule PO (09:12)
[2022-12-25] MEDS: sulfaSALAzine 500 mg Tablet 1000 MG PO (09:12)
[2022-12-25] MEDS: atorvastatin 40 mg Tablet 10 MG PO (09:12)
[2022-12-25] MEDS: pantoprazole DR 40 mg Tablet PO (09:13)
--- NOTE | 2022-12-25 15:26 | PC.NURSE ---
Patient education provided, IV removed, VS stable. No questions or concerns follow up appointments made. Patient left via PV with spouse.
--- NOTE | 2022-12-25 15:54 | PM.DCS ---
Discharge Providers Date of Admission: 12/24/22 16:17 Date of Discharge: December 25, 2022 Attending Provider at Admission: Gwendolyn Chavez MD Attending Provider at Discharge: Gwendolyn Chavez MD Primary Care Provider: Sven Mai MD Diagnoses at Discharge Discharge Diagnosis (1) Chest pain: Status: Acute Reason for Visit Reason for Visit: chest pain this morning Hospital Course Hospital Course 52-year-old lady presented to the hospital with chief complaints of chest pain on her left side radiating into her jaw. EKG did not show any acute ST-T wave changes. Troponin series was negative. Due to multiple underlying risk factors by way of diabetes mellitus, chronic inflammatory disease, early hypertension, it was decided to pursue a stress test to evaluate for possible unstable angina. She underwent the stress test today which returned normal. Her chest pain is currently controlled. It has not recurred. On telemetry monitoring there were no acute EKG changes during the course of her stay here. She is being discharged today in stable condition with recommendation to follow-up with her primary care provider in 1 week. Chest x-ray was negative. Low suspicion for PE given patient did not have any symptoms of dyspnea, complete resolution of chest pain, oxygen saturation 99% on room air. During the course of her admission her blood pressure systolic was noted to be between 130 to 150 mmHg. Suspect that intermittent high blood pressure readings may be related to anxieties around being in the hospital and having the stress test. Advised to keep a blood pressure log at home by checking her blood pressure twice a day over the next week and take it to her follow-up appointment with her primary care provider. Physical Exam Narrative: General: No acute distress, AO x3 HEENT: PERRLA, pupils bilaterally equal and reactive, pallors not present Chest: Normal vesicular breath sounds, no added sounds, equal good air entry bilaterally CVS: S1-S2 regular, no murmurs, no tachycardia, no gallops, no rubs Abdomen: Soft, nontender, no organomegaly, bowel sounds present Neuro: No focal deficits, no facial deformity, AO x3, power 5/5 in all limbs Discharge Data Studies Completed and Pending Completed Studies During Hospitalization Category Date Time Status Cardiac Stress Test MIBI [Sestamibi Stress Test Request Exams 12/24/22 18:59 Draft ] Routine XR chest 1V portable [id number] Urgent Exams 12/24/22 11:53 Completed NM luis e perf SPECT r/s* [id number] Routine Nuc Med 12/25/22 08:00 Completed Radiology Impressions Chest X-Ray 12/24/22 11:53 IMPRESSION: No acute findings. Laboratory Results WBC 6.3 10^3/uL (4.0-10.0) 12/24/22 12:08 RBC 3.96 10^6/uL (4.1-5.3) L 12/24/22 12:08 Hgb 13.0 g/dL (11.5-15.3) 12/24/22 12:08 Hct 39.7 % (37.0-47.0) 12/24/22 12:08 MCV 100.3 fl (81-99) H 12/24/22 12:08 MCH 32.8 pg (28.0-34.0) 12/24/22 12:08 MCHC 32.7 g/dL (30.0-36.0) 12/24/22 12:08 RDW 11.3 % (12.1-15.1) L 12/24/22 12:08 Plt Count 269 10^3/cmm (130-400) 12/24/22 12:08 MPV 10.5 fL (7.4-10.4) H 12/24/22 12:08 Neut % (Auto) 64.3 % 12/24/22 12:08 Lymph % (Auto) 23.2 % 12/24/22 12:08 [place] % (Auto) 8.0 % 12/24/22 12:08 Eos % (Auto) 2.4 % 12/24/22 12:08 Baso % (Auto) 1.8 % 12/24/22 12:08 Neut # (Auto) 4.03 10^3/uL (1.8-7.7) 12/24/22 12:08 Lymph # (Auto) 1.5 10^3/uL (0.8-4.8) 12/24/22 12:08 [place] # (Auto) 0.5 10^3/uL (0.2-0.9) 12/24/22 12:08 Eos # (Auto) 0.2 10^3/uL (0.0-0.8) 12/24/22 12:08 Baso # (Auto) 0.1 10^3/uL (0.0-0.1) 12/24/22 12:08 Nucleated RBC % (auto) 0 % 12/24/22 12:08 Nucleated RBCs # 0.0 /100WBC 12/24/22 12:08 PT 13.20 SECONDS (12.1-14.9) 12/24/22 12:08 INR 0.97 (0.8-1.2) 12/24/22 12:08 APTT 33.2 SECONDS (23.9-36.7) 12/24/22 12:08 Sodium 142 mmol/L (136-145) 12/24/22 12:08 Potassium 4.0 mmol/L (3.5-5.1) 12/24/22 12:08 Chloride 107 mmol/L (98-107) 12/24/22 12:08 Carbon Dioxide 27 mmol/L (22-29) 12/24/22 12:08 Anion Gap 12.0 (5-19) 12/24/22 12:08 BUN 8 mg/dL (6-20) 12/24/22 12:08 Creatinine 0.6 mg/dL (0.5-0.9) 12/24/22 12:08 GFR Calculation 104.2 mL/min (90-130) 12/24/22 12:08 Glucose 81 mg/dL (65-115) 12/24/22 12:08 Calculated Osmolality 291 mOsm/kg (285-295) 12/24/22 12:08 Calcium 9.3 mg/dL (8.5-10.5) 12/24/22 12:08 Total Bilirubin 0.4 mg/dL (0.15-1.2) 12/24/22 12:08 AST 22 U/L (0-32) 12/24/22 12:08 ALT 17 U/L (0-33) 12/24/22 12:08 Alkaline Phosphatase 71 U/L (35-105) 12/24/22 12:08 Troponin T Baseline 6 ng/L (0-10) 12/24/22 12:08 Troponin T 120 Minute 6.00 ng/L (0-10) 12/24/22 14:15 Delta Troponin T 0 ABS# (0-10) 12/24/22 14:15 Troponin T Hi Sens 6Hr 8.68 ng/L (0-10) 12/24/22 18:19 Troponin T Hi Sens 6Hr Delta 2.68 ng/L (0-12) 12/24/22 18:19 Total Protein 6.5 g/dL (6.6-8.7) L 12/24/22 12:08 Albumin 4.1 g/dL (3.5-5.2) 12/24/22 12:08 Globulin 2.4 g/dL (1.3-4.6) 12/24/22 12:08 Lipase 22 U/L (13-60) 12/24/22 12:08 Vitals Last Vital Signs Temp 97.9 F 12/25/22 07:06 Pulse 105 H 12/25/22 15:23 Resp 18 12/25/22 15:23 BP 134/84 12/25/22 15:23 Pulse Ox 95 12/25/22 15:23 O2 Del Method 12/25/22 11:09 Discharge Plan Discharge Patient Disposition: Home Condition: Stable Prescriptions: Continued sumatriptan succinate [Imitrex] 50 mg tablet 50 mg PO Q2H PRN (Reason: Migraine Headache) Rx Instructions: do not exceed 4 doses per 24 hrs metformin 1,000 mg tablet 500 mg PO BID hydrocodone-acetaminophen 10-325 mg tablet 1 tab PO BID PRN (Reason: Pain) pravastatin 10 mg tablet 10 mg PO DAILY gabapentin 300 mg capsule 300 mg PO BID triamcinolone acetonide 0.5 % cream 1 applic topical BID Qty: 15 2RF prednisone 5 mg tablet 5 mg PO DAILY Qty: 90 1RF sulfasalazine 500 mg tablet 1 g PO BID Qty: 120 3RF Humira Pen 40 mg/0.8 mL pen injector kit 40 mg SUBCUT Q14D Qty: 2 3RF folic acid 1 mg tablet 3 mg PO DAILY Qty: 90 3RF Novolog U-100 Insulin aspart 100 unit/mL solution See Rx Instructions .ROUTE .COMPLEX Rx Instructions: per sliding scale leflunomide 20 mg tablet 20 mg PO DAILY Xanax 0.25 mg tablet 0.25 mg PO DAILY PRN (Reason: Anxiety) pantoprazole 40 mg tablet,delayed release (DR/EC) 40 mg PO DAILY Discharge Orders: Discharge Order (Routine); Ordered 12/25/22 Ordered By: Gwendolyn Chavez Referrals: Sven Mai MD [Primary Care Provider] - 01/01/23 8:00 am (Please follow-up with Dr. Mai on January 01 at 8:00A.M. If you have any questions or need to reschedule. Please call ) Discharge Diet: Usual diet Discharge Activity: Resume usual activity Patient Instructions: Angina (DC), Chest Pain Stoplight, Opioid Safety Discharge Attestations Time Spent in Discharge Care*: greater than 30 min Quality Metrics Clinical Quality Measures [ No reported AMI, CVA or VTE this stay] Coding Level of Care Code Acute Code for Chg Fwd Diagnoses Chest pain R07.9
== END 2022-12-25 15:45 | disposition home or self-care (01) ==
LOC: ER 14:21 → CSU 17:37
PROVIDERS: Physician Assistant; Admitting Provider Student in an Organized Health Care Education/Training Program; Emergency Provider Emergency Medicine; PCP Family Medicine; Visit Provider Student in an Organized Health Care Education/Training Program
DX: R07.9 Chest pain, unspecified (principal); E10.9 Type 1 diabetes mellitus without complications; I10 Essential (primary) hypertension; M35.3 Polymyalgia rheumatica; Z79.84 Long term (current) use of oral hypoglycemic drugs; Z79.4 Long term (current) use of insulin
CPT/HCPCS: 36415; 71045; 78452; 80053; 83690; 84484; 85025; 85610; 85730; 93005; 93017; 96360; 96361; 96374; 99285; A9500; G0378; J2785; J7040; J7512

== ENCOUNTER → 2023-02-12 10:32 | Outpatient (BNVA) | payer MEDICARE, OTHER, SELFPAY | PROVIDERS: PCP Family Medicine; Visit Provider Internal Medicine Rheumatology | DX: Z71.89 Other specified counseling (principal); M05.79 Rheumatoid arthritis with rheumatoid factor of multiple sites without organ or systems involvement; Z79.899 Other long term (current) drug therapy; H46.9 Unspecified optic neuritis; L40.0 Psoriasis vulgaris | CPT/HCPCS: 99214 ==

== ENCOUNTER → 2023-02-14 08:19 | Outpatient (BNVA) | payer MEDICARE, OTHER, SELFPAY | PROVIDERS: PCP Family Medicine; Referring Provider Specialist; Visit Provider Specialist | DX: G43.711 Chronic migraine without aura, intractable, with status migrainosus (principal) | CPT/HCPCS: 64615; J0585 ==

== ENCOUNTER → 2023-05-15 12:39 | Outpatient (BNVA) | payer MEDICARE, OTHER, SELFPAY | PROVIDERS: PCP Family Medicine; Visit Provider Internal Medicine Rheumatology | DX: Z79.899 Other long term (current) drug therapy (principal); M05.79 Rheumatoid arthritis with rheumatoid factor of multiple sites without organ or systems involvement | CPT/HCPCS: 80076; 82565; 85025; 86140; 99214 ==

== ENCOUNTER → 2023-05-16 07:52 | Outpatient (BNVA) | payer MEDICARE, OTHER, SELFPAY | PROVIDERS: PCP Family Medicine; Visit Provider Specialist | DX: G43.711 Chronic migraine without aura, intractable, with status migrainosus (principal) | CPT/HCPCS: 64615; J0585 ==

== ENCOUNTER 2023-05-30 11:00 | Outpatient (CLI) | payer MEDICARE, OTHER, SELFPAY ==
[2023-05-30 11:18] LABS: Basophils # 0.1 10^3/uL (0.0-0.1); Basophils % 1.7 %; Eosinophils # 0.4 10^3/uL (0.0-0.8); Eosinophils % 6.7 %; Hematocrit 36.8 % (36-47); Mean Corpuscular HGB Conc 34.2 g/dL (30-55); Mean Corpuscular Hemoglobin 34.3 pg (27-33); Mean Corpuscular Volume 100.3 fl (85-98); Mean Platelet Volume 10.5 fL (7.4-10.4); Monocytes # 0.6 10^3/uL (0.2-0.9); Monocytes % 10.1 %; Neutrophils % 49.2 %; Nucleated Red Blood Cells % 0 %; Platelet Count 235 10^3/cmm (157-399); Red Blood Count 3.67 10^6/uL (3.85-5.65); Red Cell Distribution Width 11.9 % (12.1-15.1); White Blood Count 6.31 10^3/uL (3.29-11.43)
== END 2023-05-30 11:01 | disposition home or self-care (01) ==
PROVIDERS: PCP Family Medicine; Visit Provider Internal Medicine Rheumatology
DX: M05.79 Rheumatoid arthritis with rheumatoid factor of multiple sites without organ or systems involvement (principal); Z79.899 Other long term (current) drug therapy
CPT/HCPCS: 36415; 85025

== ENCOUNTER → 2023-07-04 10:42 | Outpatient (BNVA) | payer MEDICARE, OTHER, SELFPAY | PROVIDERS: PCP Family Medicine; Visit Provider Family Medicine | DX: R10.9 Unspecified abdominal pain (principal); F98.8 Other specified behavioral and emotional disorders with onset usually occurring in childhood and adolescence; F32.A Depression, unspecified; E05.90 Thyrotoxicosis, unspecified without thyrotoxic crisis or storm | CPT/HCPCS: 80053; 83690; 85025 ==

== ENCOUNTER → 2023-08-15 07:49 | Outpatient (BNVA) | payer MEDICARE, SELFPAY | PROVIDERS: PCP Family Medicine; Visit Provider Specialist | DX: G43.711 Chronic migraine without aura, intractable, with status migrainosus (principal) | CPT/HCPCS: 64615; J0585 ==

== ENCOUNTER → 2023-08-21 09:56 | Outpatient (BNVA) | payer MEDICARE, SELFPAY | PROVIDERS: PCP Family Medicine; Visit Provider Internal Medicine Rheumatology | DX: Z79.899 Other long term (current) drug therapy (principal); M05.79 Rheumatoid arthritis with rheumatoid factor of multiple sites without organ or systems involvement; Z71.89 Other specified counseling; H46.9 Unspecified optic neuritis; L40.0 Psoriasis vulgaris | CPT/HCPCS: 99214 ==

== ENCOUNTER → 2023-11-14 07:49 | Outpatient (BNVA) | payer MEDICARE, SELFPAY | PROVIDERS: PCP Family Medicine; Visit Provider Specialist | DX: G43.711 Chronic migraine without aura, intractable, with status migrainosus (principal) | CPT/HCPCS: 64615; J0585 ==

== ENCOUNTER → 2023-12-30 13:28 | Outpatient (BNVA) | payer MEDICARE, SELFPAY | PROVIDERS: PCP Family Medicine; Visit Provider Family Medicine | DX: R30.0 Dysuria | CPT/HCPCS: 81000; 87086 ==

== ENCOUNTER → 2024-02-13 09:47 | Outpatient (BNVA) | payer MEDICARE, SELFPAY | PROVIDERS: PCP Family Medicine; Visit Provider Specialist | DX: G56.03 Carpal tunnel syndrome, bilateral upper limbs (principal); G43.711 Chronic migraine without aura, intractable, with status migrainosus | CPT/HCPCS: 64615; 95911; 99213; J0585 ==

== ENCOUNTER → 2024-05-26 12:57 | Outpatient (BNVA) | payer MEDICARE, SELFPAY | PROVIDERS: PCP Family Medicine; Visit Provider Internal Medicine Rheumatology | DX: M05.79 Rheumatoid arthritis with rheumatoid factor of multiple sites without organ or systems involvement (principal); Z79.899 Other long term (current) drug therapy; Z71.85 Encounter for immunization safety counseling; H46.9 Unspecified optic neuritis; L40.0 Psoriasis vulgaris; Z11.1 Encounter for screening for respiratory tuberculosis; Z11.59 Encounter for screening for other viral diseases | CPT/HCPCS: 99214 ==

== ENCOUNTER → 2024-07-09 08:45 | Outpatient (BNVA) | payer MEDICARE, SELFPAY | PROVIDERS: PCP Family Medicine; Visit Provider Specialist | DX: G43.711 Chronic migraine without aura, intractable, with status migrainosus (principal); G56.03 Carpal tunnel syndrome, bilateral upper limbs | CPT/HCPCS: 64615; J0585 ==

== ENCOUNTER → 2024-10-23 10:45 | Outpatient (BNVA) | payer MEDICARE, SELFPAY | PROVIDERS: PCP Family Medicine; Visit Provider Specialist | DX: G43.711 Chronic migraine without aura, intractable, with status migrainosus (principal); M48.061 Spinal stenosis, lumbar region without neurogenic claudication; G56.03 Carpal tunnel syndrome, bilateral upper limbs | CPT/HCPCS: 64615; 99213; J0585 ==

== ENCOUNTER 2024-10-29 08:27 | Outpatient (CLI) | payer MEDICARE, SELFPAY ==
--- NOTE | 2024-10-29 08:45 | MR_ITS ---
WS: [id number] MRI LUMBAR SPINE NONCONTRAST TECHNIQUE: Sagittal T1, T2 and STIR imaging. Axial T1 and T2 imaging. CLINICAL INFORMATION: M48.061 - Spinal stenosis, lumbar region without neurogen... COMPARISON: None. FINDINGS: Mild lumbar curve. No acute compression. Slight anterolisthesis L4 on L5. L1-L2: Mild annular bulging. Mild facet arthropathy. Spinal canal and foramen are patent. L2-L3: No significant disc bulging. Mild facet arthropathy. Spinal canal and foramen are patent. L3-L4: No significant disc bulging. Mild facet arthropathy. Spinal canal and foramen are patent. L4-L5: Slight anterolisthesis L4 on L5. Mild disc bulging with slight narrowing of the subarticular r ecess bilaterally. Moderate to advanced facet arthropathy. Tiny facet effusions. Mild bilateral lea inal narrowing with small foraminal protrusions. L5-S1: Tiny LEFT foraminal protrusion with slight contact of the exiting LEFT L5 nerve root. Spinal c anal and RIGHT foramen are patent. Moderate facet arthropathy. Degenerative endplate type changes at T11-T12. MR/MR lumbar spine wo con* [id number] IMPRESSION: 1. Mild lumbar curve. Slight anterolisthesis L4 on L5. 2. Mild disc bulging L4-5 with slight impingement on the traversing RIGHT grea ter than LEFT L5 nerve roots. Mild bilateral L4-5 foraminal narrowing with smal l foraminal protrusions. 3. Moderate to advanced arthropathy L4-5 with small facet effusions compatible with degenerative or inflammatory synovitis. This also can be seen with instab ility. 4. Mild LEFT L5-S1 foraminal narrowing with a tiny LEFT foraminal protrusion.
== END 2024-10-29 08:28 | disposition home or self-care (01) ==
LOC: RAD 08:29
PROVIDERS: PCP Family Medicine; Visit Provider Specialist
DX: M48.061 Spinal stenosis, lumbar region without neurogenic claudication (principal); M43.8X6 Other specified deforming dorsopathies, lumbar region; M43.16 Spondylolisthesis, lumbar region; M51.369 Other intervertebral disc degeneration, lumbar region without mention of lumbar back pain or lower extremity pain; M51.26 Other intervertebral disc displacement, lumbar region; M47.896 Other spondylosis, lumbar region
CPT/HCPCS: 72148

== ENCOUNTER → 2024-11-12 11:30 | Outpatient (BNVA) | payer MEDICARE, SELFPAY | PROVIDERS: PCP Family Medicine; Visit Provider Specialist | DX: M48.061 Spinal stenosis, lumbar region without neurogenic claudication (principal); M47.816 Spondylosis without myelopathy or radiculopathy, lumbar region; G56.03 Carpal tunnel syndrome, bilateral upper limbs; G43.711 Chronic migraine without aura, intractable, with status migrainosus; E10.9 Type 1 diabetes mellitus without complications; E05.90 Thyrotoxicosis, unspecified without thyrotoxic crisis or storm; H46.9 Unspecified optic neuritis; M05.79 Rheumatoid arthritis with rheumatoid factor of multiple sites without organ or systems involvement | CPT/HCPCS: 99213 ==

== ENCOUNTER → 2025-02-08 12:19 | Outpatient (BNVA) | payer MEDICARE, SELFPAY | PROVIDERS: PCP Family Medicine; Visit Provider Specialist | DX: G43.711 Chronic migraine without aura, intractable, with status migrainosus (principal); G56.03 Carpal tunnel syndrome, bilateral upper limbs | CPT/HCPCS: 36415; 64615; 80076; 82565; 85025; 85651; 86140; J0585; J9999 ==

== ENCOUNTER → 2025-02-16 10:49 | Outpatient (BNVA) | payer MEDICARE, SELFPAY | PROVIDERS: PCP Family Medicine; Visit Provider Internal Medicine Rheumatology | DX: M05.79 Rheumatoid arthritis with rheumatoid factor of multiple sites without organ or systems involvement (principal); Z79.899 Other long term (current) drug therapy; Z71.89 Other specified counseling; H46.9 Unspecified optic neuritis; L40.0 Psoriasis vulgaris | CPT/HCPCS: 99214 ==

== ENCOUNTER → 2025-05-04 13:34 | Outpatient (BNVA) | payer MEDICARE, SELFPAY | PROVIDERS: PCP Family Medicine; Visit Provider Orthopaedic Surgery | DX: M48.061 Spinal stenosis, lumbar region without neurogenic claudication (principal); M47.816 Spondylosis without myelopathy or radiculopathy, lumbar region; M43.16 Spondylolisthesis, lumbar region | CPT/HCPCS: 72072; 72110; 99214 ==

== ENCOUNTER → 2025-05-25 10:55 | Outpatient (BNVA) | payer MEDICARE, SELFPAY | PROVIDERS: PCP Family Medicine; Visit Provider Orthopaedic Surgery | DX: M43.16 Spondylolisthesis, lumbar region (principal); M47.816 Spondylosis without myelopathy or radiculopathy, lumbar region; M48.061 Spinal stenosis, lumbar region without neurogenic claudication; Z01.818 Encounter for other preprocedural examination | CPT/HCPCS: 36415; 80053; 81001; 83036; 85025; 99214 ==

== ENCOUNTER → 2025-05-27 09:35 | Outpatient (BNVA) | payer MEDICARE, SELFPAY | PROVIDERS: PCP Family Medicine; Visit Provider Specialist | DX: G43.711 Chronic migraine without aura, intractable, with status migrainosus (principal); G56.03 Carpal tunnel syndrome, bilateral upper limbs; M48.061 Spinal stenosis, lumbar region without neurogenic claudication; M47.816 Spondylosis without myelopathy or radiculopathy, lumbar region; E10.9 Type 1 diabetes mellitus without complications; E05.90 Thyrotoxicosis, unspecified without thyrotoxic crisis or storm; H46.9 Unspecified optic neuritis; M05.79 Rheumatoid arthritis with rheumatoid factor of multiple sites without organ or systems involvement | CPT/HCPCS: 64615; J0585; J9999 ==

== ENCOUNTER → 2025-06-02 09:39 | Outpatient (BNVA) | payer MEDICARE, SELFPAY | PROVIDERS: PCP Family Medicine; Visit Provider Family Medicine | DX: Z01.818 Encounter for other preprocedural examination (principal); R94.31 Abnormal electrocardiogram [ECG] [EKG] | CPT/HCPCS: 93005 ==

== ENCOUNTER 2025-06-14 16:16 | Observation (INO) | payer MEDICARE, SELFPAY ==
[2025-06-14] VITALS (23 sets, daily range): BP systolic 100–139; BP diastolic 60–92; PULSE 82–116; RESP 14–18; TEMP 36.7–37.3; O2SAT 93–100; BMI 25.7; BMI 23.1
--- NOTE | 2025-06-14 10:44 | W.PM.OPSUD ---
Surgery/Procedure H&P Update DATE OF PROCEDURE: June 14, 2025 DATE H&P PERFORMED: 05/25/25 H&P UPDATE INFORMATION: I have reviewed H&P completed within last 30 days, I have examined patient prior to procedure and No changes to prior documentation PREOP DIAGNOSIS: Lumbar stenosis with neurogenic claudication; L4-5 spondylolisthesis PLANNED PROCEDURE: Operation Date: 06/14/25 12:30 Proposed Procedures p Posterior Lumbar Interbody Fusion PLIF(Not Applicable) - Norm Sevilla DO
--- NOTE | 2025-06-14 11:14 | ANES.PREANE2 ---
Pre-Anesthetic Assessment Height/Weight: Height 5 ft 4 in Weight 150 lb Temp Pulse Resp BP Pulse Ox O2 Del Method 98.5 F 82 14 131/92 98 Room Air 06/14/25 10:06/14/25 10:06/14/25 10:06/14/25 10:06/14/25 10:06/14/25 10:40 Preop Diagnosis: Lumbar stenosis with neurogenic claudication; L4-5 spondylolisthesis Operation Date: 06/14/25 12:30 Proposed Procedures p Posterior Lumbar Interbody Fusion PLIF(Not Applicable) - Norm Sevilla, DO Was Beta Leighton taken within 24 hours: N/A Was Clonidine taken within 24 hours: N/A Last intake: Intake Last Liquid Date 06/13/25 Last Liquid Time 23:00 Last Solid Date 06/13/25 Last Solid Time 23:00 Social No alcohol and No tobacco Exam alert, oriented x 3, clear to auscultation bilaterally and regular rate & rhythm Airway Submandibular: Other (MJ history) Cervical ROM: within normal limits Mallampati: Class III Dentition: full Anesthetic Plan ASA status: 3 Anesthesia: General Other: History of PONV, patient states that she did well last time when they gave her some medication to help with nausea. Scopolamine patch has been applied N.p.o. since yesterday evening History of hypertension on losartan GERD, controlled with Protonix IDDM, patient is reported to be a brittle diabetic. Pre-op BS 128. Tentative plan is to disconnect insulin pump and will check every 30-60 minutes IntraOp Recent labs reviewed and acceptable for procedure today METs greater than 4 Plan for GETA Medications/Allergies Home Medications ?Medication ?Instructions ?Recorded ?Confirmed ?Last Taken ?Type insulin aspart U-100 100 unit/mL See Rx Instructions .Route .COMPLEX 12/24/22 06/10/25 06/10/25 History subcutaneous solution (Novolog U-100 Insulin aspart) methimazole 5 mg tablet 5 mg PO DAILY #30 tabs 11/06/24 06/10/25 06/10/25 Rx losartan 25 mg tablet 25 mg PO QDAY 02/10/25 06/10/25 06/10/25 History upadacitinib 15 mg tablet,extended 15 mg PO DAILY #30 tabs 02/16/25 06/10/25 06/06/25 Rx release 24 hr (Rinvoq) alprazolam 0.25 mg tablet (Xanax) 0.25 mg PO DAILY PRN Anxiety #30 03/29/25 06/10/25 06/10/25 Rx tabs sumatriptan succinate 100 mg tablet See Rx Instructions .Route 05/13/25 06/10/25 06/10/25 Rx .COMPLEX #30 ea pantoprazole 40 mg tablet,delayed 40 mg PO DAILY 06/10/25 06/10/25 06/10/25 History release venlafaxine 150 mg 150 mg PO DAILY 06/10/25 06/10/25 06/10/25 History capsule,extended release 24 hr methylphenidate HCl 20 mg tablet 20 mg PO BID 1 month #60 tabs 06/14/25 Unknown Rx Allergies Allergy/AdvReac Type Severity Reaction Status Date / Time bupropion (From Wellbutrin) Allergy Intermediate hallucinati Verified 06/02/25 10:01 on galcanezumab-gnlm (From Allergy Mild Rash on leg Verified 06/02/25 10:01 Emgality Pen) Current Medications Generic Name Dose Route Start Last Admin Trade Name Freq PRN Reason Stop Dose Admin Sodium Chloride 1,000 mls @ 30 mls/hr 06/14/25 10:15 06/14/25 11:13 Sodium Chloride 0.9% IV 06/15/25 10:14 30 mls/hr .Q24H [place] Administration PFSH Anesthesia Medical History HTN, goal below 130/80 Plaque psoriasis Immunization counseling High risk medication use Seropositive rheumatoid arthritis of multiple sites Optic nerve atrophy, 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, managed as type 1 Chronic migraine without aura, intractable, with status migrainosus Surgical History History of hysterectomy with bilateral oophorectomy History of esophageal surgery cyst History of delivery Family History Other CAD (coronary artery disease) Diabetes FH: migraines Hypertension Multiple sclerosis Multiple system atrophy Denies family history of Rheumatoid arthritis Lupus Chronic kidney disease (CKD) Lung disease Cancer Stroke Social History Smoking and tobacco/nicotine status: never used tobacco/nicotine Alcohol intake: current Alcohol intake frequency: few times a month Substance/Drug Use: never Data Anesthesia Cardiac Studies: Sestamibi Stress Test (Cardiology) 12/24/22
[2025-06-14] MEDS: ceFAZolin 2,000 mg SDV 2000 MG IVP ×2 (11:27→20:03)
[2025-06-14] MEDS: tobramycin 40 mg/mL SDV 2mL 120 MG XX (12:14)
[2025-06-14] MEDS: lidocaine-epi 1% 20 mL INJ 10 ML INJECTION (12:15)
[2025-06-14] MEDS: heparin, porcine 1,000 unit/mL INJ 10 mL 5000 UNIT IRRIGATION (12:23)
--- NOTE | 2025-06-14 13:29 | PC.NURSE ---
Phone call with Eliud, spouse, to update him on surgery.
--- NOTE | 2025-06-14 13:55 | P.OP_ITS ---
Operative Report Date of procedure: June 14, 2025 Pre-op diagnosis: Lumbar stenosis with neurogenic claudication L4/5 spondylolisthesis Post-op diagnosis: same Procedure done: 1. L4/5 Interbody fusion with posterolateral fusion 2. Instrumentation L4/5 3. Cage at L4/5 4. L4/5 laminectomy and facetectomies 5. use of autograft from same incision 6. allograft 7. Bone marrow aspirate from right iliac crest 8. Use of computer navigation/stereotactic for spine Surgeon: Norm Sevilla DO Estimated blood loss (mL): 50 Procedure: 1. L4/5 Interbody fusion with posterolateral fusion 2. Instrumentation L4/5 3. Cage at L4/5 4. L4/5 laminectomy and facetectomies 5. use of autograft from same incision 6. allograft 7. Bone marrow aspirate from right iliac crest 8. Use of computer navigation/stereotactic for spine Patient is brought to the operative suite. After undergoing anesthesia, the patient had neuro monitoring attached. Patient was then placed in the prone position on the Al table. All areas of impingement were well-padded. Patient was then prepped and draped in the normal sterile fashion. Skin incision was then made over the L/5 space. Subperiosteal dissection was made out to the transverse processes of L4 and L5. Next attention was brought to the [employer] bone marrow aspirate kit was used to aspirate bone marrow aspirate. This was done by using the sharp probe to open up the bone and the iliac crest. Aspiration was performed and then the blunt p robe was then used to dissect down to through the bone tunnel. An aspirating well drawn back a millimeter approximately 20 cc of bone marrow aspirate was used. Admixed with the allograft and autograft bone that will be used. Next attention was brought to placing the fiducial for the stereotactic placement of pedicle screws. 2 pins were placed in the right iliac crest. And then the fiducial was attached to this. C-arm was brought in and spun around the patient. That information was then loaded the computer The technique for placing the pedicle screws was to use a drill followed by the gearshift probe with computer navigation. Followed by the ball probe to feel the superior inferior medial lateral zamarripa of the pedicles. Then placement of the screws. Was done at each pedicle. Screws were placed with computer navigation at L4 bilaterally and L5. Next attention was brought to performing the laminectomy ofL4. This was done using the high-speed bur Kerrisons and curettes. Once the lamina was removed and then attention was brought to performing a partial facetectomy on the contralateral side. This was done again using the high-speed bur curettes and Kerrisons. The ligamentum flavum was taken down bilaterally from L4 to L5. Attention was then brought to the facet on the ipsilateral side. The facet was taken down. The L5 nerve was decompressed as it passed around the L5 pedicle. The laminectomy was done for purposes of decompressing the nerve as well as placement of the cage. The L4 nerve was identified as it traversed through the L4 foramen. The thecal sac was identified and retracted. The L4/5 disc base was identified. Using a knife the disc base was opened. And then sequential ramona were placed. The first shaver was a 6 and the last shaver was a 10. Using a pituitary and down going curette the endplates were scraped and disc material was removed from the space. Once adequate decompression of the disc base was felt to be had. Osteoamp sponge was packed into the anterior aspect of the disc base. Then a size 10 cage from [employer] was placed after packing osteoamp into the cage. While placing the cage the thecal sac and L5 nerve was protected. C arm was used to ensure that the cages placed in the appropriate position. Attention was then brought to attaching the rods to the screws placed in the L4 to L5 bilaterally. Caps were torqued into position. Locking the construct in place. Wound was copiously irrigated and then attention was brought to decorticating the facets and transverse processes laterally. Bone that was taken down from the lamina was used along with osteoamp fibers and sponges were packed into the lateral gutters along the facet joints. This was done bilaterally. Wound was then closed in a layered fashion starting with the thoracolumbar fascia. 0-vicryl was used the sub cutaneous tissue was closed with 2-0 vicryl and skin with 4-0 monocryl. Glue was then used to seal the skin and a steril dressing was applied. Patient was then placed in the supine position. The endotracheal tube was removed and patient was transferred to the PACU in stable condition.
[2025-06-14] MEDS: HYDROmorphone 1 mg/mL INJ 1ml 0.5 MG IVP ×2 (14:21→14:30)
[2025-06-14] MEDS: fentaNYL 50 mcg/mL INJ 2mL IVP ×2 (14:53→14:58)
--- NOTE | 2025-06-14 15:19 | XR_ITS ---
WS: [id number] Lumbar spine, C-arm fluoroscopy views, 06/14/2025 Clinical Data: or pic, lumbar spine fusion Comparison: Lumbar spine, 05/04/2025 Findings: Dr. Sevilla performed a posterior lumbar fusion. XR/XR lumbar spine 2-3V* [id number] Impression: Posterior lumbar fusion.
[2025-06-14] MEDS: HYDROcodone-acetaminophen 5-325 mg Tablet 2 TAB PO (15:28)
[2025-06-14] MEDS: morphine 4 mg/mL SDV 1 mL 2 MG IVP (17:34)
[2025-06-14] MEDS: SUMATRIPTAN SUCCINATE 100 MG 50 EACH PO (23:39)
[2025-06-14] MEDS: ondansetron 2 mg/ML SDV 2 mL 4 MG IVP (23:43)
[2025-06-14] MEDS: HYDROcodone-acetaminophen 5-325 mg Tablet PO (23:59)
[2025-06-15] VITALS (8 sets, daily range): BP systolic 110–129; BP diastolic 60–76; PULSE 65–82; RESP 16–20; TEMP 36.6–37.3; O2SAT 96–98
[2025-06-15] MEDS: ceFAZolin 2,000 mg SDV 2000 MG IVP ×2 (03:38→11:03)
[2025-06-15] MEDS: HYDROcodone-acetaminophen 5-325 mg Tablet PO (06:24)
--- OUTSIDE RECORDS SUMMARY | 2025-06-15 06:35 | XMS_ITS | Encounter Summary ---
Author Organization [facility] Address [address] [place] [address] Care Team Providers Care Regulatory Consultant Name Role Phone Ronn Jarrett MD Primary Care Provider [phone] Reason for Referral * Outpatient Services (Routine) - Closed Specialty Diagnoses / Procedures Referred By Contac t Referred To Contact Diagnoses RLQ abdominal pain Procedures US PELVIC TRANSVAGINAL + DOPPLER Ronn Jarrett MD [address] [address] Phone: tel: fax: Referral ID Status Reason Start Date Expiration Date Visits Re quested Visits Authorized [id number] Closed 09/19/2011 09/18/2012 1 1 RUCTIONAL DESIGN CONSULTANT Encounter Details Date Type Department Care Team (Late st Contact Info) Description 09/19/2011 Ancillary Orders [facility] Malik Mark Neil-Ion [address] [place] [phone] Ronn Jarrett MD [address] [phone] RLQ abdominal pain Social History Tobacco Use Types Packs/Day Years Used Date Smoking Tobacco: Never Smokeless Tobacco: Never Alcohol Use Standard Drinks/Week Comments Yes 0 (1 standard drink = 0.6 oz pur e alcohol) occasional Comments No Sex and Gender Information Value Date Recorded Sex Assigned at Not on file Legal Sex Female 5:35 AM INSTRUCTIONAL DESIGN CONSULTANT Gender Identity Not on file Sexual Orientation Not on file 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 Comparisons: None. Findings: Uterus measures 9.7 cm long x 4.2 cm AP x 5.7 cm transverse. Uterus is heterogeneous in echotexture without well-defined nodule. Endometrial echo complex is unremarkable in appearance and measures 7.3 mm in diameter which is within normal limits. Small amount of free fluid is seen in the posterior cul-de-sac. Right ovary measures 5.9 x 4.2 x 5.1 cm and contains a complex right ovarian cyst measuring 3.6 x 3.1 x 3.5 cm. A smaller simple right ovarian cyst is noted measuring 2.0 x 1.6 x 1.6 cm. Patient is status post left oophorectomy. Doppler evaluation of the right ovary is unremarkable. Impressions: 1. Enlarged right ovary with large complex right ovarian cyst as well as a smaller simple right ovarian cyst. Continued surveillance is recommended. 2. Status post left oophorectomy. cah - uploaded from [employer] - Procedure Note Jonathon Fraley MD - 09/22/2011 Exam: US PELVIC TRANSVAGINAL + DOPPLER Date/Time of Exam: Sep 19, 2011 11:10:00 AM Reason For Exam: ABDOMINAL PAIN, RIGHT LOWER QUADRANT. Comparisons: None. Findings: Uterus measures 9.7 cm long x 4.2 cm AP x 5.7 cm transverse. Uterus is heterogeneous in echotexture without well-defined nodule. Endometrial echo complex is unremarkable in appearance and measures 7.3 mm in diameter which is within normal limits. Small amount of free fluid is seen in the posterior cul-de-sac. Right ovary measures 5.9 x 4.2 x 5.1 cm and contains a complex right ovarian cyst measuring 3.6 x 3.1 x 3.5 cm. A smaller simple right ovarian cyst is noted measuring 2.0 x 1.6 x 1.6 cm. Patient is status post left oophorectomy. Doppler evaluation of the right ovary is unremarkable. Impressions: 1. Enlarged right ovary with large complex right ovarian cyst as well as a smaller simple right ovarian cyst. Continued surveillance is recommended. 2. Status post left oophorectomy. cah - uploaded from [employer] - us Ronn Jarrett MD ORDERABLES Final Result documented in this encounter Visit Diagnoses Diagnosis RLQ abdominal pain Abdominal pain, right lower quadrant documented in this encounter Care Teams Regulatory Consultant Relationship Specialty Start Date End Date Ronn Jarrett MD [address] [phone] PCP - General Family Practice 06/16/10 documented as of this encounter
--- OUTSIDE RECORDS SUMMARY | 2025-06-15 06:35 | XMS_ITS | Encounter Summary ---
Author Organization [facility] Address [address] [place] [address] Care Team Providers Care Deflash And Wash Operator Name Role Phone Ronn Jarrett MD Primary Care Provider [phone] Encounter Details Date Type Department Care Team (Latest Contact Info) Description 04/27/2005 Outpatient Historical [facility] Imaging Services [address] [place] [phone] Mark Cortez MD NO ADDRESS ON FILE SWELLING IN HEAD & NECK (Primary Dx) Social History Tobacco Use Types Packs/Day Years Used Date Smoking Tobacco: Never Assessed Comments Unknown Sex and Gender Information Value Date Recorded Sex Assigned at Not on file Legal Sex Female 5:35 AM MANAGER TRANSFUSION Gender Identity Not on file Sexual Orientation Not on file documented as of this encounter Plan of Treatment Not on file documented as of this encounter Visit Diagnoses Diagnosis Swelling, mass, or lump in head and neck- Primary documented in this encounter Care Teams Deflash And Wash Operator Relationship Specialty Start Date End Date Ronn Jarrett MD [address] [place] [phone] PCP - General Family Practice 06/16/10 documented as of this encounter
--- OUTSIDE RECORDS SUMMARY | 2025-06-15 06:36 | XMS_ITS | Encounter Summary ---
Author Organization [facility] Address [address] [place] [address] Care Team Providers Care Vector Control Assistant Name Role Phone Ronn Jarrett MD Primary Care Provider Encounter Details Date Type Department Care Team (Latest Contact Info) Description 04/27/2005 Outpatient Historical [facility] Ear, Nose and Throat [address] [place] 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
--- OUTSIDE RECORDS SUMMARY | 2025-06-15 06:36 | XMS_ITS | Encounter Summary ---
Author Organization [facility] Address [address] [place] [address] Care Team Providers Care Slag Expander Name Role Phone Ronn Jarrett MD Primary Care Provider [phone] Encounter Details Date Type Department Care Team (Latest Contact Info) Description 04/13/2005 Outpatient Historical [facility] Ear, Nose and Throat [address] [place] 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
--- OUTSIDE RECORDS SUMMARY | 2025-06-15 06:36 | XMS_ITS | Encounter Summary ---
Author Organization [facility] Address [address] [place] [address] Care Team Providers Care Heavy Truck Mechanic Name Role Phone Ronn Jarrett MD Primary Care Provider Encounter Details Date Type Department Care Team (Latest Contact Info) Description 05/02/2005 Outpatient Historical [facility] Operating Room [address] 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 Gender Identity Not on file Sexual Orientation Not on file documented as of this encounter Plan of Treatment Not on file documented as of this encounter Procedures Procedure Name Priority Date/Time Associated Diagnosis Comments CBC WITHOUT DIFFERENTIAL Routine 05/02/2005 8:25 AM CDT documented in this encounter Results * CBC WITHOUT DIFFERENTIAL (05/02/2005 8:25 AM CDT) WBC 6.5 4.5 - 11.0 K/ul INTERFACE SYSTEM RBC 4.54 4.20 - 5.40 Mil/ul INTERFACE SYSTEM HEMOGLOBIN 13.9 12.0 - 16.0 g/dL INTERFACE SYSTEM HEMATOCRIT 42.1 36.0 - 46.0 % INTERFACE SYSTEM MCV 92.7 84.0 - 103.0 Fl INTERFACE SYSTEM MCH 30.6 27.0 - 34.0 pg INTERFACE SYSTEM MCHC 33.0 30.0 - 35.0 g/dL INTERFACE SYSTEM RDW 12.2 11.0 - 14.5 % INTERFACE SYSTEM PLATELETS 327 140 - 440 K/ul INTERFACE SYSTEM MPV 10.3 8.9 - 12.8 Fl INTERFACE SYSTEM NEUTROPHILS 54.3 42.2 - 75.2 % INTERFACE SYSTEM LYMPHOCYTES 35.7 24.0 - 44.0 % INTERFACE SYSTEM MONOCYTES 6.9 2.0 - 10.0 % INTERFACE SYSTEM EOSINOPHILS 2.2 0.0 - 7.0 % INTERFACE SYSTEM BASOPHILS 0.9 0.0 - 1.0 % INTERFACE SYSTEM NEUTROPHIL ABSOLUTE 3.5 2.0 - 8.0 K/uL INTERFACE SYSTEM LYMPHOCYTE ABSOLUTE 2.3 1.2 - 4.0 K/ul INTERFACE SYSTEM MONOCYTE ABSOLUTE 0.5 0.1 - 0.6 K/ul INTERFACE SYSTEM EOSINOPHIL ABSOLUTE 0.1 0.0 - 0.7 K/ul INTERFACE SYSTEM BASOPHILS ABSOLUTE 0.1 0.0 - 0.2 K/ul INTERFACE SYSTEM 05/02/2005 8:25 AM CDT us Mark Cortez MD HEMATOLOGY ORDERABLES Final R esult INTERFACE SYSTEM Refer to clinic/hospital department documented in this encounter Visit Diagnoses Diagnosis Other diseases of larynx- Primary documented in this encounter Care Teams Heavy Truck Mechanic Relationship Specialty Start Date End Date Ronn Jarrett MD [address] [facility] [address] [place] [phone] PCP - General Family Practice 06/16/10 documented as of this encounter
--- OUTSIDE RECORDS SUMMARY | 2025-06-15 06:36 | XMS_ITS | Clinical Summary ---
Author Organization [facility] Address [address] [place] [phone] Care Team Providers Care Maintenance Planner Name Role Phone Ronn Jarrett MD Primary Care Provider [phone] Allergies No known active allergies Medications triamcinolone acetonide (KENALOG) 0.5 % CreamIndication s:Other psoriasis Apply to affected area daily. 60 Gram 1 09/17/2013 Active cyclobenzaprine (FLEXERIL) 10 mg tablet Take 1 Tab by mouth 3 times daily as needed for Spasm. 20 Tab 0 08/20/2014 Active Active Problems Problem Noted Date Diagnosed Date DDD (degenerative disc disease), lumbar 08/27/20 14 Lumbar back pain 08/27/2014 DANITA (generalized anxiety disorder) 05/21/2013 Obesity 05/21/2013 Hot flashes 05/21/2013 S/P total hysterectomy and B SO (bilateral salpingo-oophorectomy) 04/28/2013 Panic attack 04/17/2010 Anxiety state 07/05/2009 Mood swings 07/05/2009 Resolved Problems Problem Noted Date Diagnosed Date Resolved Date Menometrorrhagia 10/03/2011 10/12/2011 Complex ovarian cyst 10/03/2011 012 PMDD (premenstrual dysphoric disorder) 07/05/2009 10/12/2011 Immunizations Immunization Administration Dates Next Due Influenza Vaccine Split 3+ Yrs IM 08/04/2014 Influenza Vaccine Split 3+ Yrs PF IM 07/09/2013, 10/12/2011 Family History Medical History Relation Name Comments Hypertension Mother Relation Name Status Comments Mother Social History Tobacco Use Types Packs/Day Years Used Date Smoking Tobacco: Never Smokeless Tobacco: Never Alcohol Use Standard Drinks/Week Comments Yes 0 (1 standard drink = 0.6 oz pur e alcohol) occasional Comments No Sex and Gender Information Value Date Recorded Sex Assigned at Not on file 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 Gender Identity Not on file Sexual Orientation Not on file 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 Not on file Not on file Last Filed Vital Signs Vital Sign Reading Time Taken Comments Blood Pressure 134/72 12/20/2014 4:27 PM CDT Pulse 86 12/20/2014 4:27 PM CDT Temperature 36.8 C (98.3 F) 12/20/2014 4:27 PM CDT Respiratory Rate 20 12/20/2014 4:27 PM CDT Oxygen Saturation 97% 12/20/2014 4:27 PM CDT Inhaled Oxygen Concentration - - Weight 88.5 kg (195 lb) 12/20/2014 4:27 PM CDT Height 162.6 cm (5' 4 ) 12/20/2014 4:27 PM CDT Body Mass Index 33.47 12/20/2014 4:27 PM CDT Plan of Treatment Health Maintenance Due Date Last Done Comments DTAP/TDAP/TD VACCINES (1 - Tdap) 02/13/1987 HEPATITIS B VACCINES (1 of 3 - 19+ 3-dose series) 02/13/1987 BREAST CANCER SCREENING 2008 COLORECTAL SCREENING 02/13/2013 Colorectal Cancer Screening 02/13/2013 FIT-DNA Q 3 years 02/13/2013 FIT/FOBT Q 1 year 02/13/2013 Flex Sig/CT Colonography Q 5 years 02/13/2013 ZOSTER VACCINE (1 of 2) 02/13/2018 Preventative Visit- Commercial 10/07/2024 09/09/2012 , 05/29/2010 INFLUENZA VACCINE (#1) 2025 4, 07/09/2013, 10/12/2011 Insurance [facility] * Guarantor: Arline Fisher Account Type Relation to Patient Date of Phone Billing Address Personal/Family Self 1970 [phone] (Work) [address] [place] [address] [facility] Advance Directives For more information, please contact: [phone] * Full Code (Latest Code Status on File) Date Activated Date Inactivated Comments 10/11/2011 8:18 AM 10/12/2011 3:10 PM Care Teams Maintenance Planner Relationship Specialty Start Date End Date Ronn Jarrett MD [address] [place] [phone] PCP - General Family Practice 06/16/10
--- OUTSIDE RECORDS SUMMARY | 2025-06-15 06:36 | XMS_ITS | Encounter Summary ---
Author Organization [facility] Address [address] [place] [address] Care Team Providers Care Etymology Teacher Name Role Phone Ronn Jarrett MD Primary Care Provider [phone] Encounter Details Date Type Department Care Team (Latest Contact Info) Description 05/11/2005 Outpatient Historical [facility] Ear, Nose and Throat E [place] [address] 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
--- OUTSIDE RECORDS SUMMARY | 2025-06-15 06:36 | XMS_ITS | Clinical Summary ---
Author Organization [facility] Address [address] [place]: Epic [place] [address] Care Team Providers Care Microcomputer Support Specialist Name Role Phone Ronn Jarrett MD Primary Care Provider [phone] Allergies No known active allergies Active Problems Problem Noted Date Diagnosed Date Lumbar back pain 08/27/2014 DDD (degenerative disc disease), lumbar 08/27/20 14 Obesity 05/21/2013 DANITA (generalized anxiety disorder) 05/21/2013 Hot flashes 05/21/2013 S/P total hysterectomy and B SO (bilateral salpingo-oophorectomy) 04/28/2013 Panic attack 04/17/2010 Anxiety state 07/05/2009 Mood swings 07/05/2009 Resolved Problems Problem Noted Date Diagnosed Date Resolved Date Complex ovarian cyst 10/03/2011 012 Menometrorrhagia 10/03/2011 10/12/2011 PMDD (premenstrual dysphoric disorder) 07/05/2009 10/12/2011 Immunizations [...] drink = 0.6 oz pur e alcohol) Comments Unknown Sex and Gender Information Value Date Recorded Sex Assigned at Not on file Legal Sex Female 6:34 AM BOTTLE CLEANER Gender Identity Not on file Sexual Orientation Not on file Last Filed Vital Signs Vital Sign Reading Time Taken Comments Blood Pressure 134/72 12/20/2014 4:27 PM CDT Pulse 86 12/20/2014 4:27 PM CDT Temperature 36.8 C (98.3 F) 12/20/2014 4:27 PM CDT Respiratory Rate 20 12/20/2014 4:27 PM CDT Oxygen Saturation - - Inhaled Oxygen Concentration - - Weight 88.5 kg (195 lb) 12/20/2014 4:27 PM CDT Height 162.6 cm (5' 4 ) 12/20/2014 4:27 PM CDT Body Mass Index 33.47 12/20/2014 4:27 PM CDT Plan of Treatment Health Maintenance Due Date Last Done Comments DIABETES ANNUAL FOOT EXAM 02/13/1986 DIABETES MICROALBUMIN ANNUAL SCREEN 02/13/1986 DTAP/TDAP/TD VACCINES (1 - Tdap) 02/13/1987 HEPATITIS B VACCINES (1 of 3 - 19+ 3-dose series) 02/13/1987 BREAST CANCER SCREENING 2008 COLORECTAL SCREENING 02/13/2013 Colorectal Cancer Screening 02/13/2013 FIT-DNA Q 3 years 02/13/2013 FIT/FOBT Q 1 year 02/13/2013 Flex Sig/CT Colonography Q 5 years 02/13/2013 LDL CHOLESTEROL ANNUAL 12/25/2015 12/24/2014 ZOSTER VACCINE (1 of 2) 02/13/2018 DIABETES HBA1C Q 6 MONTHS 05/27/2023 11/27/2022 DIABETES ANNUAL RETINAL EXAM 03/19/2024 03/19/2023 INFLUENZA VACCINE (#1) 2025 4, 07/09/2013, 10/12/2011 Procedures Procedure Name Priority Date/Time Associated Diagnosis Comments LIPID PANEL Routine 12/24/2014 8:57 AM CDT from Last 3 Months or Most Recently Relevant to Health Maintenance Results * (ABNORMAL) LIPID PANEL (12/24/2014 8:57 AM CDT) [facility] Signature CHOLESTEROL 214(H) 100 - 200 MG/DL 12/24/2014 5:22 PM CDT [facility] TRIGLYCERIDE 106 0 - 150 MG/DL 12/24/2014 5:22 PM CDT [facility] HDL 69(H) 40 - 60 MG/DL 12/24/2014 5:22 PM CDT [facility] LDL CALCULATED 124(H) 58 - 100 MG/DL 12/24/2014 5:22 PM CDT [facility] Comment: CALCULATED LDL REFERENCE: < 100 Optimal 100 - 129 Near Optimal 130 - 159 Borderline High > 160 High Risk TOTAL NON-HDL CHOL(LDL+VLDL) 145 MG/DL 12/24/2014 5:22 PM CDT [facility] Comment: NON HDL CHOLESTEROL mg/dL OPTIMAL <130 NEAR OPTIMAL 130-159 BORDERLINE HIGH 160-189 HIGH 190-219 VERY HIGH >=220 Blood 12/24/2014 8:57 AM CDT 12/24/2014 8:58 AM CDT us Maikel SPRINGER CHEMISTRY ORDERABLES Final R esult [facility] CLIA# [id number] [address] [place] [address] from Last 3 Months or Most Recently Relevant to Health Maintenance Care Teams Microcomputer Support Specialist Relationship Specialty Start Date End Date Ronn Jarrett MD [address] [phone] PCP - General Family Practice 06/16/10
--- OUTSIDE RECORDS SUMMARY | 2025-06-15 06:36 | XMS_ITS | Encounter Summary ---
Author Organization [employer] [facility] Address [address] [place] [address] Care Team Providers Care Supervisor Irrigation Name Role Phone Ronn Jarrett MD Primary Care Provider [phone] Encounter Details Date Type Department Care Team (Latest Contact Info) Description 04/15/2002 Outpatient Historical HIS [facility] PLASTIC SURGERY Mata Mcfadden MD NO ADDRESS ON FILE PLASTIC SURGERY NEC (Primary Dx) Social History Tobacco Use Types Packs/Day Years Used Date Smoking Tobacco: Never Assessed Comments Unknown Sex and Gender Information Value Date Recorded Sex Assigned at Not on file 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
--- OUTSIDE RECORDS SUMMARY | 2025-06-15 06:36 | XMS_ITS | Encounter Summary ---
Author Organization [facility] Address [address] [place] [address] Care Team Providers Care Sack Maker Name Role Phone Ronn Jarrett MD Primary Care Provider [phone] Encounter Details Date Type Department Care Team (Late st Contact Info) Description 02/07/2017 Ancillary Orders [facility] CT Scan [address] [place] [address] Tomas Sabillon MD [address] [place] [address] Acute bilateral low back pain without sciatica Social History Tobacco Use Types Packs/Day Years Used Date Smoking Tobacco: Never Smokeless Tobacco: Never Alcohol Use Standard Drinks/Week Comments Yes 0 (1 standard drink = 0.6 oz pur e alcohol) occasional Comments No Sex and Gender Information Value Date Recorded Sex Assigned at Not on file 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
--- NOTE | 2025-06-15 08:14 | P.DS_ITS ---
Discharge Providers Date of Admission: 06/14/25 16:16 Date of Discharge: June 15, 2025 Attending Provider at Admission: Norm Sevilla DO Attending Provider at Discharge: Norm Sevilla DO Primary Care Provider: Sven Mai MD Reason for Visit Reason for Visit: M43.16 Physical Exam Narrative: Patient up eating breakfast pain controlled. Urinary Catheter Management: Cat: Cath Placed During This Visit: yes, but has since been removed by the nurse Reason for Continuing Indwelling Catheter: Decision to DC Catheter Urinary Catheter Date of Insertion: 06/14/25 Urinary Catheter Time of Insertion: 12:04 Date Urinary Catheter Removed: 06/15/25 Time Urinary Catheter Discontinued: 06:20 Discharge Data Studies Completed and Pending Completed Studies During Hospitalization Category Date Time Status XR lumbar spine 2-3V* [id number] Routine Exams 06/14/25 15:19 Completed Pending at discharge Category Date Time Status C-arm Fluoroscopy [id number] Routine Exams 06/14/25 10:12 Taken Radiology Impressions Lumbar Spine X-Ray 06/14/25 15:19 Impression: Posterior lumbar fusion. Laboratory Results POC Glucose 106 mg/dL (70-110) 06/15/25 06:17 Blood Type Cancelled 06/14/25 10:55 Rho(D) Type Cancelled 06/14/25 10:55 Antibody Screen Cancelled 06/14/25 10:55 Vitals Last Vital Signs Temp 99.1 F 06/15/25 07:23 Pulse 71 06/15/25 07:23 Resp 19 H 06/15/25 07:23 BP 120/70 06/15/25 07:23 Pulse Ox 97 06/15/25 07:23 O2 Del Method Nasal Cannula 06/15/25 07:23 O2 Flow Rate 1 06/15/25 04:00 Discharge Plan Discharge Patient Disposition: Home Condition: Stable Prescriptions: New hydrocodone-acetaminophen 5-325 mg tablet 1 - 2 tab PO .Q4-6H Qty: 40 0RF Continued losartan 25 mg tablet 25 mg PO QDAY methimazole 5 mg tablet 5 mg PO DAILY Qty: 30 11RF sumatriptan succinate 100 mg tablet See Rx Instructions .ROUTE .COMPLEX Qty: 30 5RF Dose Instruction: take one-half TABLET BY MOUTH every TWO hours NEEDED FOR headache * max of TWO tablets in 24 hours * Rx Instructions: take one-half TABLET BY MOUTH every TWO hours NEEDED FOR headache * max of TWO tablets in 24 hours * methylphenidate HCl 20 mg tablet 20 mg PO BID 30 Days Qty: 60 0RF insulin aspart U-100 [Novolog U-100 Insulin aspart] 100 unit/mL solution See Rx Instructions .ROUTE .COMPLEX Rx Instructions: per sliding scale venlafaxine 150 mg capsule,extended release 24hr 150 mg PO DAILY Rx Instructions: take 1 capsule BY MOUTH EVERY DAY pantoprazole 40 mg tablet,delayed release (DR/EC) 40 mg PO DAILY Rx Instructions: TAKE ONE TABLET BY MOUTH every DAY IN THE MORNING 30 minutes before meal Held Rinvoq 15 mg tablet extended release 24 hr 15 mg PO DAILY Qty: 30 5RF Hold Instructions: Resume on 06/29/25. Discontinued Xanax 0.25 mg tablet 0.25 mg PO DAILY PRN (Reason: Anxiety) Qty: 30 3RF Discharge Diet: Advance as tolerated Discharge Activity: Limit activity as instructed Patient Instructions: Acute Wound Care (DC), Opioid Safety, Post Anesthesia Care, Patient Portal & Pia Instructions Activity Restrictions/Additional Instructions: Okay to restart Xanax when you get home Thank you for choosing [facility] for your care! The following is a list of instructions, from your provider, to follow upon your discharge to ensure you have the optimal recovery from your recent injury or surgery. Follow-up care is a moran part of your treatment and safety. Be sure to make and go to all appointments, and call your doctor if you are having problems. If you do not already have a follow-up appointment made, call Dr. Sevilla's office in the next 1-3 days to make follow up appointment for 1 weeks at [phone]. It is also a good idea to know your test results and keep a list of the medicines you take. Medications will be prescribed for you at your provider?s discretion. These med ications are to be used as instructed;if they are taken more often that prescribed they will not be refilled early and in most cases will not be refilled at all. > When a refill is needed,you should contact our office 2-3 business days beforeyour prescription runs out. Medications will NOTbe refilled by filtration plant operator providers after hours! > Many pain medications contain Tylenol (Acetaminophen). Do not consume more than 4,000 mg of Tylenol per day in total with any combination of medications. > Pain medications can cause constipation. Please use an over the counter stool softener as directed, while taking pain medications. Consult your local pharmacist with questions or recommendations on stool softeners. If constipation persists, contact our office or your primary care provider. > While under our care,you are not to receive pain medications or other controlled substances from any other provider unless our office is notified and approves. Any attempts to do so will result in refusal to prescribe any further pain medications and possible dismissal from our practice. ? Keep dressing on until seen in clinic in 1 week ? Showering is permitted, however we ask that you do not take a bath, sit in a whirlpool / Jacuzzi, or go swimming for 1 month. For only the first 2 days after surgery, lt wilt be necessary for you to cover your wound/dressing with plastic and tape to keep it dry. ? Walking is essential for the healing process after surgery. We would like you to slowly advance your walking. This should be done on relatively flat clear ground (inside or out) or can be done on a treadmill. Remember this goal does not have to happen all at once, slowly increase your distance and duration. This can be broken into more more than one walk per day as tolerated. Patients who walk as directed after surgery rarely require Physical Therapy. In the unlikely event this issue arises your provider will direct hospital staff to make the appropriate arrangements. ? No lifting over 5 pounds {a gallon of milk) or bending/twisting until further notice. Each of these activities places an unnecessary amount of stress onto the body and can impede the delicate healing process. > Instead of bending at the waist, keep your back straight and bend at the knees. > Instead of twisting your torso, keep your back straight and turn your entire body with your feet. ? You may sleep in any position which makes you comfortable.Many patients find comfort sleeping in a reclining chair. It is not abnormal to have difficulty sleeping for the first several weeks following your surgery. We recommend trying Benadryl or Tylenol PM as directed to help with your sleeping difficulties. Both medications are over the counter and available without prescription. ? NO SMOKING!!!Smoking dramatically increases the probability of developing postoperative wound infections. ? Common complaints after lumbar and/or thoracic spine surgery include, but are not limited to: numbness and/or tingling in the legs, pain around the incision and surrounding tissues, muscle spasms, or stiffness of the middle to low back. Contact our office if these symptoms persist or if an acute change occurs. ? No driving for the first 3-5 days, and not while taking narcotics until seen at your follow-up appointment and cleared.There are no restrictions for riding on short trips, however if you take a longer trip, arrangements should be made to make regular stops to get out of the vehicle and stretch . ? Swelling is an unfortunate event that will take place with any surgery and is the primary source of your postoperative discomfort. While walking and regular approved activities helps control inflammation, there are additional steps you can take to minimize swelling. > Place ice over the surgical site and surrounding tissue for twenty minutes, followed by applying a low/medium heat (heating pad) for an additional twenty minutes every 1-2 hours as needed for pain relief. > You may use of over the counter anti-inflammatory medications (Ibuprofen, Motrin, Aleve, Advil, etc) as directed on the package label. These types of medicines will significantly reduce the amount of discomfort you experience after surgery from swelling. It should be noted that if you have an allergy to any of these medications, or a history of ulcers or kidney disease you should consult your primary care provider prior to starting these medications. Discharge Attestations Time Spent in Discharge Care*: less than 30 min Quality Metrics Clinical Quality Measures [ No reported AMI, CVA or VTE this stay] Coding Level of Care Code Acute Code for Carlosg Fwyeison
[2025-06-15] MEDS: oxyCODONE 5 mg IR Tab/Cap PO (11:04)
[2025-06-15] MEDS: venlafaxine ER (24HR) 150 mg Capsule PO (11:06)
== END 2025-06-15 12:42 | disposition home or self-care (01) ==
LOC: MEDSURG 16:44
PROVIDERS: Admitting Provider Orthopaedic Surgery; PCP Family Medicine; Visit Provider Orthopaedic Surgery
PROC: (CPT 22612; principal; 2025-06-14 12:00)
DX: M48.062 Spinal stenosis, lumbar region with neurogenic claudication (principal); M43.16 Spondylolisthesis, lumbar region; Z79.4 Long term (current) use of insulin; K21.9 Gastro-esophageal reflux disease without esophagitis; I10 Essential (primary) hypertension; E13.9 Other specified diabetes mellitus without complications
CPT/HCPCS: 22633; 22614; 63052; 20939; 22853; 20930; 22840; 36415; 36416; 51702; 72100; 76000; 82962; 97116; 97161; C1713; C1776; G0378; J0690; J1100; J1171; J1644; J1885; J2250; J2270; J2405; J2704; J3010; J3260; J3373; J3490; J7030; J7120; J9999

== ENCOUNTER → 2025-06-29 14:38 | Outpatient (BNVA) | payer MEDICARE, SELFPAY | PROVIDERS: PCP Family Medicine; Visit Provider Orthopaedic Surgery | DX: Z98.890 Other specified postprocedural states (principal); Z98.1 Arthrodesis status | CPT/HCPCS: 99024 ==

== ENCOUNTER → 2025-06-30 11:31 | Outpatient (BNVA) | payer MEDICARE, SELFPAY | PROVIDERS: PCP Family Medicine; Visit Provider Internal Medicine Rheumatology | DX: M05.79 Rheumatoid arthritis with rheumatoid factor of multiple sites without organ or systems involvement (principal); Z79.899 Other long term (current) drug therapy; Z71.85 Encounter for immunization safety counseling; H46.9 Unspecified optic neuritis; L40.0 Psoriasis vulgaris | CPT/HCPCS: 36415; 82306; 86480; 86704; 86803; 87340; 99214 ==

== ENCOUNTER → 2025-08-10 11:06 | Outpatient (BNVA) | payer MEDICARE, SELFPAY | PROVIDERS: PCP Family Medicine; Visit Provider Orthopaedic Surgery | DX: Z98.890 Other specified postprocedural states (principal); Z98.1 Arthrodesis status | CPT/HCPCS: 72100; 99024 ==

== ENCOUNTER → 2025-08-26 09:43 | Outpatient (BNVA) | payer MEDICARE, SELFPAY | PROVIDERS: PCP Family Medicine; Visit Provider Specialist | DX: G43.711 Chronic migraine without aura, intractable, with status migrainosus (principal); G56.03 Carpal tunnel syndrome, bilateral upper limbs; M48.061 Spinal stenosis, lumbar region without neurogenic claudication; M47.816 Spondylosis without myelopathy or radiculopathy, lumbar region; E10.9 Type 1 diabetes mellitus without complications; E05.90 Thyrotoxicosis, unspecified without thyrotoxic crisis or storm; H46.9 Unspecified optic neuritis; M05.79 Rheumatoid arthritis with rheumatoid factor of multiple sites without organ or systems involvement | CPT/HCPCS: 64615; J0585; J9999 ==

== ENCOUNTER → 2025-09-07 09:03 | Outpatient (BNVA) | payer MEDICARE, SELFPAY | PROVIDERS: PCP Family Medicine; Visit Provider Orthopaedic Surgery | DX: Z98.890 Other specified postprocedural states (principal); Z98.1 Arthrodesis status | CPT/HCPCS: 72100; 99024 ==